=== PATIENT | male | born 1950 | race Caucasian/White ===

== ENCOUNTER 2017-05-26 20:06 | Inpatient (IN) | payer OTHER, MEDICARE ==
[~2017-05-26] VITALS: Ht 175.3 cm; Wt 68.5 kg
[2017-05-26 20:40] LABS: BASOPHILS % (AUTO) 0 % (0-10); BILIRUBIN,URINE NEGATIVE (NEGATIVE); CLARITY,URINE CLEAR; COLOR,URINE YELLOW; EOSINOPHILS % (AUTO) 0 % (0-10); GLUCOSE, URINE (UA) NEGATIVE (NEGATIVE); HEMATOCRIT 37 % (40-54); HEMOGLOBIN 13.1 G/DL (13.3-17.7); KETONES,URINE 1+ (NEGATIVE); LEUKOCYTE ESTERASE ,URINE 3+ (NEGATIVE); LYMPHOCYTES # (AUTO) 0.2 X 10^3 (1.0-4.0); LYMPHOCYTES % (AUTO) 2 % (12-44); MEAN CORPUSCULAR HEMOGLOBIN 31 PG (25-34); MEAN CORPUSCULAR HGB CONC 35 G/DL (32-36); MEAN CORPUSCULAR VOLUME 87 FL (80-99); MEAN PLATELET VOLUME 8.7 FL (7.4-10.4); MONOCYTES # (AUTO) 0.3 X 10^3 (0.0-1.0); MONOCYTES % (AUTO) 3 % (0-12); NEUTROPHILS % (AUTO) 96 % (42-75); NITRITE,URINE NEGATIVE (NEGATIVE); PH,URINE 6 (5-9); PLATELET COUNT 221 10^3/uL (130-400); PROTEIN,URINE 3+ (NEGATIVE); RED BLOOD COUNT 4.26 10^6/uL (4.35-5.85); RED CELL DISTRIBUTION WIDTH 12.8 % (10.0-14.5); UROBILINOGEN,URINE 4 MG/DL (NORMAL); WHITE BLOOD COUNT 11.5 10^3/uL (4.3-11.0)
--- NOTE | 2017-05-26 20:42 | ED General ---
General Stated Complaint: BLOOD INFECTION Source of Information: Patient Exam Limitations: No Limitations History of Present Illness Date Seen by Provider: May 26, 2017 Time Seen by Provider: 20:09 Initial Comments Here with report of blood infection. Seen at [facility] in [facility] yesterday. This is for fever. He had blood cultures drawn and Lomeli catheter placed at that time. Noted to have elevated white count and today he had blood cultures positive for gram-negative rods. He was given IV antibiotics yesterday and started on Levaquin by mouth daily today. He did take 1 dose of that. He apparently had a Rocephin injection at the hospital prior to leaving. Does have a history of needing to self catheter because of urinary retention. He has a Lomeli catheter in place now and that is draining yellow/cloudy urine. The hospital called him and wanted him evaluated at a hospital and All of his information from yesterday to here for further evaluation. Timing/Duration: 3-4 Days Severity: Moderate Associated Systoms: No Chest Pain, No Cough, No Diaphoresis, Fever/Chills, No Nausea/Vomiting, No Shortness of Air, No Weakness Allergies and Home Medications Allergies Coded Allergies: No Known Drug Allergies (Unverified , 02/06/13) Patient Home Medication List Home Medication List Reviewed: Yes Constitutional: see HPI, No chills, fever EENTM: no symptoms reported Respiratory: no symptoms reported Cardiovascular: no symptoms reported Gastrointestinal: no symptoms reported Genitourinary: see HPI, hematuria, other Musculoskeletal: no symptoms reported Skin: rash (resolved) Psychiatric/Neurological: No Symptoms Reported All Other Systems Reviewed Negative Unless Noted: Yes Past Xhypoqb-Hejevr-Fhanif Hx Patient Social History Alcohol Use: Occasionally Uses Recreational Drug Use: No Smoking Status: Never a Smoker Recent Foreign Travel: No Contact w/Someone Who Travel: No Immunizations Up To Date Date of Influenza Vaccine: Dec 27, 2012 Surgeries History of Surgeries: Yes Surgeries: Tonsillectomy Respiratory History of Respiratory Disorde: No Cardiovascular History of Cardiac Disorders: No Neurological History of Neurological Disord: No Genitourinary History of Genitourinary Disor: Yes Genitourinary Disorders: Benign Prostatic Hyperpl Gastrointestinal History of Gastrointestinal Di: No Musculoskeletal History of Musculoskeletal Dis: No Reviewed Nursing Assessment Reviewed/Agree w Nursing PMH: Yes Family Medical History Significant Family History: No Pertinent Family Hx Physical Exam-Suspected Sepsis Physical Exam Vital Signs Vital Signs - First Documented 05/26/17 20:09 Temp 100.6 Pulse 117 Resp 20 B/P (MAP) 98/77 (84) Pulse Ox 96 O2 Delivery Room Air Capillary Refill : General Appearance: No Apparent Distress, WD/WN HEENT: PERRL/EOMI, Pharynx Normal Neck: Non Tender, Supple Respiratory: Lungs Clear, Normal Breath Sounds Cardiovascular: Regular Rate, Rhythm, No Murmur Gastrointestinal: Non Tender, Soft Back: Normal Inspection, No CVA Tenderness, No Vertebral Tenderness Extremity: Normal Range of Motion, Non Tender Neurologic/Psychiatric: Alert, Oriented x3 Skin: normal color, warm/dry Focused Exam Evaluation Lactate Level Laboratory Tests 05/26/17 20:30: Lactic Acid Level 1.23 Lactic Acid Level Laboratory Tests Test 05/26/17 20:30 Lactic Acid Level 1.23 MMOL/L (0.50-2.00) Progress/Results/Core Measures Suspected Sepsis SIRS Temperature: Pulse: Respiratory Rate: Laboratory Tests 05/26/17 20:30: White Blood Count 11.5H Blood Pressure / Mean: Laboratory Tests 05/26/17 20:30: Lactic Acid Level 1.23 Laboratory Tests 05/26/17 20:30: Creatinine 0.93, INR Comment 1.4, Platelet Count 221, Total Bilirubin 1.3H Results/Orders Lab Results Laboratory Tests Test 05/26/17 20:30 Range/Units White Blood Count 11.5 H 4.3-11.0 10^3/uL Red Blood Count 4.26 L 4.35-5.85 10^6/uL Hemoglobin 13.1 L 13.3-17.7 G/DL Hematocrit 37 L 40-54 % Mean Corpuscular Volume 87 80-99 FL Mean Corpuscular Hemoglobin 31 25-34 PG Mean Corpuscular Hemoglobin Concent 35 32-36 G/DL Red Cell Distribution Width 12.8 10.0-14.5 % Platelet Count 221 130-400 10^3/uL Mean Platelet Volume 8.7 7.4-10.4 FL Neutrophils (%) (Auto) 96 H 42-75 % Lymphocytes (%) (Auto) 2 L 12-44 % Monocytes (%) (Auto) 3 0-12 % Eosinophils (%) (Auto) 0 0-10 % Basophils (%) (Auto) 0 0-10 % Neutrophils # (Auto) 11.0 H 1.8-7.8 X 10^3 Lymphocytes # (Auto) 0.2 L 1.0-4.0 X 10^3 Monocytes # (Auto) 0.3 0.0-1.0 X 10^3 Eosinophils # (Auto) 0.0 0.0-0.3 10^3/uL Basophils # (Auto) 0.0 0.0-0.1 10^3/uL Neutrophils % (Manual) 83 % Lymphocytes % (Manual) 4 % Monocytes % (Manual) 1 % Eosinophils % (Manual) 0 % Basophils % (Manual) 0 % Band Neutrophils 12 % Blood Morphology Comment NORMAL Prothrombin Time 17.3 H 12.2-14.7 SEC INR Comment 1.4 0.8-1.4 Activated Partial Thromboplast Time 29 24-35 SEC Urine Color YELLOW Urine Clarity CLEAR Urine pH 6 5-9 Urine Specific Bennet 1.010 L 1.016-1.022 Urine Protein 3+ H NEGATIVE Urine Glucose (UA) NEGATIVE NEGATIVE Urine Ketones 1+ H NEGATIVE Urine Nitrite NEGATIVE NEGATIVE Urine Bilirubin NEGATIVE NEGATIVE Urine Urobilinogen 4 H NORMAL MG/DL Urine Leukocyte Esterase 3+ H NEGATIVE Urine RBC (Auto) 5+ H NEGATIVE Urine RBC 50-100 H /HPF Urine WBC 10-25 H /HPF Urine Crystals NONE /LPF Urine Bacteria FEW H /HPF Urine Casts NONE /LPF Urine Mucus NEGATIVE /LPF Urine Culture Indicated YES Sodium Level 131 L 135-145 MMOL/L Potassium Level 3.9 3.6-5.0 MMOL/L Chloride Level 100 98-107 MMOL/L Carbon Dioxide Level 23 21-32 MMOL/L Anion Gap 8 5-14 MMOL/L Blood Urea Nitrogen 22 H 7-18 MG/DL Creatinine 0.93 0.60-1.30 MG/DL Estimat Glomerular Filtration Rate > 60 BUN/Creatinine Ratio 24 Glucose Level 110 H 70-105 MG/DL Lactic Acid Level 1.23 0.50-2.00 MMOL/L Calcium Level 8.9 8.5-10.1 MG/DL Total Bilirubin 1.3 H 0.1-1.0 MG/DL Aspartate Amino Transf (AST/SGOT) 23 5-34 U/L Alanine Aminotransferase (ALT/SGPT) 23 0-55 U/L Alkaline Phosphatase 68 40-136 U/L Total Protein 6.0 L 6.4-8.2 GM/DL Albumin 3.9 3.2-4.5 GM/DL My Orders Orders - DEYANIRA SWENSON MD Cbc With Automated Diff (05/26/17 20:) Comprehensive Metabolic Panel (05/26/17 20:09) Lactic Acid Analyzer (05/26/17 20:09) Blood Culture (05/26/17 20:) Sputum Culture (05/26/17:) Ua Culture If Indicated (05/26/17:) Protime With Inr (05/26/17:) Partial Thromboplastin Time (05/26/17:) Chest 1 View, Ap/Pa Only (05/26/17:) O2 (05/26/17:) Saline Lock/Iv-Start (05/26/17 20:09) Vital Signs Adult Sepsis Patie Q1H (05/26/17 20:09) Remove Rings In Anticipation O (05/26/17 20:09) Manual Differential (05/26/17 20:30) Acetaminophen Tablet (Tylenol Tablet) (05/26/17 20:45) Ns Iv 1000 Ml (Sodium Chloride 0.9%) (05/26/17 20:45) Urine Culture (05/26/17 20:30) Ceftriaxone Injection (Rocephin Injectio (05/26/17 22:00) Verapamil Injection (Calan Injection) (05/26/17 22:00) Verapamil Injection (Calan Injection) (05/26/17 21:44) Saline Lock/Iv-Start (05/26/17 21:51) Ns Iv 1000 Ml (Sodium Chloride 0.9%) (05/26/17 21:51) Diltiazem Cd 24 Hr Capsule (Cardizem Cd (05/26/17 22:00) Apixaban Tablet (Eliquis Tablet) (05/26/17 22:00) Saline Lock/Iv-Start (05/26/17 22:04) Ns Iv 500 Ml (Sodium Chloride 0.9%) (05/26/17 22:04) Medications Given in ED Current Medications Medications Dose Ordered Sig/Thad Route Start Time Stop Time Status Last Admin Dose Admin Apixaban 5 mg ONCE ONCE PO 05/26/17 22:00 05/26/17 22:01 DC 05/26/17 22:09 5 MG Ceftriaxone Sodium 1000 mg/ Sodium Chloride 100 ml @ 200 mls/hr ONCE ONCE IV 05/26/17 22:00 05/26/17 22:29 DC 05/26/17 21:58 200 MLS/HR Diltiazem HCl 240 mg ONCE ONCE PO 05/26/17 22:00 05/26/17 22:01 DC 05/26/17 22:09 240 MG Sodium Chloride 500 ml @ 0 mls/hr Q0M ONCE IV 05/26/17 22:04 05/26/17 22:06 DC 05/26/17 22:09 500 MLS/HR Sodium Chloride 1,000 ml @ 0 mls/hr Q0M ONCE IV 05/26/17 20:45 05/26/17 20:47 DC 05/26/17 20:50 1,000 MLS/HR Sodium Chloride 1,000 ml @ 0 mls/hr Q0M ONCE IV 05/26/17 21:51 05/26/17 21:52 DC 05/26/17 21:55 1,000 MLS/HR Verapamil HCl 5 mg ONCE ONCE IV 05/26/17 22:00 05/26/17 22:01 DC 05/26/17 21:55 5 MG Vital Signs/I&O Vital Sign - Last 12Hours 05/26/17 05/26/17 20:09 22:34 Temp 100.6 Pulse 117 137 Resp 20 13 B/P (MAP) 98/77 (84) 107/71 Pulse Ox 96 97 O2 Delivery Room Air Capillary Refill : Progress Note : Progress Note Seen and evaluated. Sepsis order set initiated. Normal saline 1 L bolus and Tylenol 1 g by mouth ordered. Monitor patient. Normal saline 2134: Patient noted to go into atrial fibrillation with rapid ventricular response on monitor. EKG done and verifies this. Patient does not have a history of that. Verapamil 5 mg IV ordered and repeat normal saline 1 L bolus due to anticipated hypotension afterwards. Patient is in the low 100s to upper 90s systolic currently. 2204: I have discussed the case with Dr. Cabrera at 2156 and he accepts patient and consult. 2202: I discussed the case with Dr. Jones and she accepts patient for admission, inpatient status, ICU for sepsis in atrial fibrillation with rapid ventricular response. Patient did become hypotensive after verapamil which was expected. I do believe this is related to the verapamil and not necessarily the sepsis. I have ordered an additional 500 mL of normal saline which will complete the 30 mL/kg IV bolus requirement but again I believe the hypotension is related to medication side effect. We will initiate Cardizem CD 240 mg by mouth and eliquis 5 mg by mouth for the atrial fibrillation concerns. 2207: Heart rate is in proving to the 120s after verapamil and fluids and blood pressure has improved to 97/53. We will continue to monitor for heart rate concerns. Patient to be admitted to the ICU. 2239: Heart rate 120s to 130s with blood pressure 107/71 and O2 sat 97 percent on room air. I tested focused exam at this time. Atrial fibrillation with rapid ventricular response is still incompletely resolved at this time that he has taken the Cardizem CD and I think this provide benefit. We will continue with the monitoring. Patient will go to the ICU. He has had his eliquis. Findings and concerns discussed with patient and family who agree. Admit, inpatient status. ECG Initial ECG Impression Date: May 26, 2017 Initial ECG Impression Time: 21:35 Initial ECG Rate: 150 Initial ECG Rhythm: A Fib/Flutter Initial ECG Impression: Atrial Fibrillation w/RVR Comment Atrial fibrillation with rapid ventricular response. Left axis deviation. No evidence of ST elevation ND. No previous available for comparison. Interpreted by me. Diagnostic Imaging Diagonstic Imaging: Xray Plain Films/CT/US/NM/MRI: chest Comments VIA [facility]. [place], [place] NAME: ELTON BLACKWELL [facility] REC#: [id number] PT STATUS: REG ER : 1950 PHYSICIAN: DEYANIRA SWENSON MD ADMIT DATE: 05/26/17/ER Draft Date of Exam:05/26/17 CHEST 1 VIEW, AP/PA ONLY EXAM: CHEST 1 VIEW, AP/PA ONLY INDICATION: Fever. COMPARISON: None. FINDINGS: Normal heart size and pulmonary vascularity. No focal pulmonary opacity, pleural effusion or pneumothorax. No acute osseous findings. IMPRESSION: No acute cardiopulmonary findings. Dictated on workstation # [id number] Dict: 05/26/172139 Trans: 05/26/172141 [id number] Interpreted by: RICHARD CALLAWAY MD Electronically signed by: Departure Communication (Admissions) Time/Spoke to Admitting Phy: 22:05 Time/Spoke to Consulting Phy: 21:57 Impression Impression: Primary Impression: Atrial fibrillation with rapid ventricular response Additional Impressions: Sepsis Qualified Codes: A41.9 - Sepsis, unspecified organism Urinary tract infection Qualified Codes: N30.00 - Acute cystitis without hematuria Disposition: ADMITTED INPATIENT Condition: Stable Admissions Decision to Admit Reason: Admit from ER (General) Decision to Admit/Date: May 26, 2017 Time/Decision to Admit Time: 21:57 Departure-Patient Inst. Referrals: DOTTIE GUZMAN MD (PCP/Family) Primary Care Physician DEYANIRA SWENSON MD May 26, 2017 20:42
[2017-05-26] MEDS ORDERED: ACETAMINOPHEN 500 MG TAB (TYLENOL) PO STA (20:45)
[2017-05-26] MEDS ORDERED: NS IV 1000 ML 1,000 ML IV ONE ×2 (20:45→21:51)
[2017-05-26 20:47] LABS: BACTERIA,URINE FEW /HPF; RBC,URINE 50-100 /HPF
[2017-05-26 20:49] LABS: INR 1.4 (0.8-1.4); PROTHROMBIN TIME PATIENT 17.3 SEC (12.2-14.7)
[2017-05-26 21:00] LABS: ALANINE AMINOTRANSFERASE 23 U/L (0-55); ALBUMIN 3.9 GM/DL (3.2-4.5); ALKALINE PHOSPHATASE 68 U/L (40-136); BILIRUBIN,TOTAL 1.3 MG/DL (0.1-1.0); BUN/CREATININE RATIO 24; CALCIUM 8.9 MG/DL (8.5-10.1); CARBON DIOXIDE 23 MMOL/L (21-32); CHLORIDE 100 MMOL/L (98-107); CREATININE SERUM 0.93 MG/DL (0.60-1.30); GFR ESTIMATED > 60; GLUCOSE 110 MG/DL (70-105); POTASSIUM 3.9 MMOL/L (3.6-5.0); SODIUM 131 MMOL/L (135-145)
[2017-05-26 21:05] LABS: BAND NEUTROPHILS 12 %; BASOPHILS % (MANUAL) 0 %; EOSINOPHILS % (MANUAL) 0 %; LYMPHOCYTES % (MANUAL) 4 %; MONOCYTES % (MANUAL) 1 %; NEUTROPHILS % (MANUAL) 83 %; RBC MORPH NORMAL
[2017-05-26] MEDS ORDERED: CLIN150C17 (21:11)
[2017-05-26] MEDS ORDERED: LEVO500T80 (21:11)
[2017-05-26] MEDS ORDERED: MUPI22OI2 (21:11)
[2017-05-26] MEDS ORDERED: TAMS0.4C2 (21:11)
--- NOTE | 2017-05-26 21:42 | Diagnostic Imaging Report ---
EXAM: CHEST 1 VIEW, AP/PA ONLY INDICATION: Fever. COMPARISON: None. FINDINGS: Normal heart size and pulmonary vascularity. No focal pulmonary opacity, pleural effusion or pneumothorax. No acute osseous findings. IMPRESSION: No acute cardiopulmonary findings. Dictated by: Dictated on workstation # [id number]
[2017-05-26] MEDS ORDERED: VERAPAMIL 5 MG/2 ML (CALAN) VIAL IV ONE (21:44)
[2017-05-26] MEDS ORDERED: DILTIAZEM 240 MG (CARDIZEM CD) CAP PO ONE (22:00)
[2017-05-26] MEDS ORDERED: APIXABAN 5 MG (ELIQUIS) TABLET PO ONE (22:00)
[2017-05-26] MEDS ORDERED: VERAPAMIL 10 MG/4 ML (CALAN) VIAL IV ONE (22:00)
[2017-05-26] MEDS ORDERED: cefTRIAXone INJECTION 1,000 MG in NS (IVPB) 100 ML IV ONE (22:00)
[2017-05-26] MEDS ORDERED: NS IV 500 ML 500 ML IV ONE (22:04)
[2017-05-26 23:00] VITALS: BP 95/66
[2017-05-26 23:15] VITALS: BP 101/76
[2017-05-26] MEDS ORDERED: CATHETER FLUSH 10 ML SYR IV PRN (23:15)
[2017-05-26] MEDS: NS IV 1000 ML 1,000 ML IV SCH (23:25)
[2017-05-26 23:30] VITALS: BP 91/71
[2017-05-26 23:45] VITALS: BP 94/74
[2017-05-27] VITALS (25 sets, daily range): BP systolic 92–127; BP diastolic 57–97
[2017-05-27] MEDS ORDERED: RT-ALBUTEROL SULF 2.5 MG/3 ML PRE-MIX VIAL INH PRN (01:45)
[2017-05-27 03:19] LABS: BASOPHILS % (AUTO) 0 % (0-10); EOSINOPHILS % (AUTO) 0 % (0-10); HEMATOCRIT 32 % (40-54); LYMPHOCYTES # (AUTO) 0.8 X 10^3 (1.0-4.0); LYMPHOCYTES % (AUTO) 5 % (12-44); MEAN CORPUSCULAR HEMOGLOBIN 31 PG (25-34); MEAN CORPUSCULAR HGB CONC 35 G/DL (32-36); MEAN CORPUSCULAR VOLUME 89 FL (80-99); MEAN PLATELET VOLUME 8.8 FL (7.4-10.4); MONOCYTES # (AUTO) 1.1 X 10^3 (0.0-1.0); MONOCYTES % (AUTO) 7 % (0-12); NEUTROPHILS # (AUTO) 14.4 X 10^3 (1.8-7.8); NEUTROPHILS % (AUTO) 89 % (42-75); PLATELET COUNT 173 10^3/uL (130-400); RED BLOOD COUNT 3.59 10^6/uL (4.35-5.85); RED CELL DISTRIBUTION WIDTH 12.9 % (10.0-14.5); WHITE BLOOD COUNT 16.2 10^3/uL (4.3-11.0)
[2017-05-27 03:32] LABS: BAND NEUTROPHILS 2 %; BASOPHILS % (MANUAL) 0 %; EOSINOPHILS % (MANUAL) 0 %; LYMPHOCYTES % (MANUAL) 5 %; MONOCYTES % (MANUAL) 5 %; NEUTROPHILS % (MANUAL) 88 %; RBC MORPH NORMAL
[2017-05-27 03:37] LABS: BUN/CREATININE RATIO 19; CALCIUM 7.9 MG/DL (8.5-10.1); CARBON DIOXIDE 18 MMOL/L (21-32); CHLORIDE 110 MMOL/L (98-107); CREATININE SERUM 0.81 MG/DL (0.60-1.30); GFR ESTIMATED > 60; GLUCOSE 178 MG/DL (70-105); MAGNESIUM 1.8 MG/DL (1.8-2.4); PHOSPHORUS 1.6 MG/DL (2.3-4.7); POTASSIUM 3.7 MMOL/L (3.6-5.0); SODIUM 136 MMOL/L (135-145)
--- OUTSIDE RECORDS SUMMARY | 2017-05-27 05:07 | XMS REPORT | Continuity of Care Document ---
Author Author [facility] Organization [facility] Address Unknown Phone Unavailable Allergies There is no data. Medications There is no data. Problems There is no data. Procedures There is no data. Results There is no data. Encounters ACCT No. Visit Date/Time Discharge Status Pt. Type Provider Facility Loc./Unit Complaint [id number] 02/06/2013 11:51:00 02/06/2013 15:30:00 DIS Outpatient [id number] 02/05/2013 07:38:00 02/05/2013 23:59:59 CLS Outpatient
[2017-05-27] MEDS ORDERED: CLIN300C11 PO (05:09)
[2017-05-27] MEDS ORDERED: LEVO500T80 PO (05:09)
[2017-05-27] MEDS ORDERED: [UNRECOGNIZED DRUG - OTHER] PO (05:09)
[2017-05-27] MEDS ORDERED: [UNRECOGNIZED DRUG - OTHER] PO (05:09)
[2017-05-27] MEDS ORDERED: TAMS0.4C2 PO (05:09)
[2017-05-27] MEDS: POTASSIUM CL 10MEQ/50ML IVPB 50 ML IV SCH (06:00)
[2017-05-27] MEDS: KCL 20 MEQ TAB (K-DUR) PO SCH (06:00)
[2017-05-27] MEDS: MAGNESIUM 1 GM/100 ML IVPB 100 ML IV SCH (06:00)
--- OUTSIDE RECORDS SUMMARY | 2017-05-27 06:31 | XMS REPORT | Continuity of Care Document ---
Author Author [facility] Organization [facility] Address Unknown Phone Unavailable Allergies There is no data. Medications There is no data. Problems There is no data. Procedures There is no data. Results There is no data. Encounters ACCT No. Visit Date/Time Discharge Status Pt. Type Provider Facility Loc./Unit Complaint [id number] 02/06/2013 11:51:00 02/06/2013 15:30:00 DIS Outpatient [id number] 02/05/2013 07:38:00 02/05/2013 23:59:59 CLS Outpatient
[2017-05-27] MEDS: CATHETER FLUSH 10 ML SYR IV SCH ×3 (06:36→21:01)
[2017-05-27] MEDS: NS IV 1000 ML 1,000 ML IV SCH ×3 (07:10→20:25)
[2017-05-27] MEDS: DILTIAZEM 240 MG (CARDIZEM CD) CAP PO SCH (08:18)
[2017-05-27] MEDS: APIXABAN 5 MG (ELIQUIS) TABLET PO SCH ×2 (08:18→20:57)
--- NOTE | 2017-05-27 09:51 | Diagnostic Imaging Report ---
CLINICAL INDICATION: Followup, blood infection. EXAM: Portable chest upright view. COMPARISON: Portable chest x-ray upright view dated 05/26/2017. FINDINGS: Lungs are clear with no interval lung infiltrate. There is no pleural effusion or pneumothorax. Pulmonary vasculature and cardiac silhouette are within normal limits. Bones show no significant abnormality. IMPRESSION: Stable chest x-ray exam with no interval radiographic evidence of acute cardiopulmonary process. Dictated by: Dictated on workstation # [id number]
--- NOTE | 2017-05-27 10:53 | History & Physical-Hospitalist ---
History of Present Illness HPI/Chief Complaint This is a 67-year-old white male who originally started having trouble with decreased urinary output and hesitancy about a year ago. Dr. Solis put him on Flomax with improvement. Approximately 3 weeks ago he began having increased trouble with acute urinary retention. He works down in [facility] and saw a urologist nurse practitioner there. He had a Lomeli catheter placed and then that was taken out after week but had to be replaced because of continued urinary retention. He then left the catheter in for another week and took it out and had improvement in his urination but has continued to have to self catheter. Approximately 2 days prior to this presentation he began having shaking chills and rigors and presented to the emergency room in [place] with similar complaints. He was called yesterday with the results of blood cultures that grew out gram-negative rods and he was instructed to go to the emergency room here. He had already been placed on Levaquin but only had one dose. He was found to be febrile here with a tachycardia and atrial fibrillation with rapid ventricular response. the patient has been placed on Rocephin and this morning is feeling somewhat better. He continues to be in atrial fibrillation but ventricular response is about 70 or 80. The patient did receive a dose of verapamil in the emergency room with subsequent hypotension. It was felt to be secondary to the medication and not sepsis. Source: patient Exam Limitations: no limitations Date Seen 05/27/17 Time Seen by Provider: 09:15 Attending Physician Kaiden Jones MD PCP Matthew Solis MD Referring Physician Date of Admission May 26, 2017 at 22:10 Home Medications & Allergies Home Medications Reviewed patient Home Medication Reconciliation performed by pharmacy medication reconciliations sterile processing technician and/or nursing. Patients Allergies have been reviewed. Allergies Allergies Coded Allergies No Known Drug Allergies (Ycmagvfwbv68/12/13) Past Zxryzlf-Unoypb-Xntpem Hx Past Med/Social Hx: Reviewed Nursing Past Med/Soc Hx Patient Social History Marrital Status: Employed/Student: employed Alcohol Use: Occasionally Uses Number of Drinks Today: AA Alcohol Beverage of Choice: Beer Recreational Drug Use: No Smoking Status: Former Smoker Former Smoker, Quit: Oct 04, 1971 Type Used: Cigarettes Physical Abuse Screen: No Sexual Abuse: No Recent Foreign Travel: No Contact w/other who traveled: No Recent Hopitalizations: Yes Recent Infectious Disease Expo: No Immunizations Up To Date Pediatric: Yes Date of Pneumonia Vaccine: Dec 05, 2016 Date of Influenza Vaccine: Dec 04, 2016 Past Medical History Surgeries: Tonsillectomy Currently Using CPAP: No Currently Using BIPAP: No Cardiac: Palpitations (Occasionally in the past) Genitourinary: Benign Prostatic Hyperpl Gastrointestinal: Gastroesophageal Reflux HEENT: Cataract History of Blood Disorders: No Adverse Reaction to Blood Pimentel: No Family History Dysphasia 19 FATHER (GERD) Kidney disease 19 FATHER (KIDNEY & PROSTATE CA) Thyroid disease 19 MOTHER (OVERACTIVE) No Pertinent Family Hx Review of Systems Constitutional: see HPI, chills, fever EENTM: no symptoms reported Respiratory: no symptoms reported Cardiovascular: palpitations (Occasional) Gastrointestinal: no symptoms reported Genitourinary: decreased output, hesitancy Musculoskeletal: no symptoms reported Skin: no symptoms reported, rash (On his lower legs) Psychiatric/Neurological: No Symptoms Reported Physical Exam Physical Exam Vital Signs Vital Signs - First Documented 05/26/17 20:09 Temp 100.6 Pulse 117 Resp 20 B/P (MAP) 98/77 (84) Pulse Ox 96 O2 Delivery Room Air Capillary Refill : Less Than 3 Seconds General Appearance: No Apparent Distress Eyes: Bilateral Eye Normal Inspection HEENT: PERRL/EOMI, TMs Normal, Normal ENT Inspection, Pharynx Normal Neck: Full Range of Motion, Normal Inspection, Non Tender, Supple Respiratory: Chest Non Tender, Lungs Clear, Normal Breath Sounds, No Accessory Muscle Use, No Respiratory Distress Cardiovascular: No Edema, No Gallop, No JVD, No Murmur, Normal Peripheral Pulses, Irregularly Irregular Gastrointestinal: Normal Bowel Sounds, No Organomegaly, No Pulsatile Mass, Non Tender, Soft Rectal: Deferred Back: Normal Inspection, No CVA Tenderness, No Vertebral Tenderness Extremity: Normal Capillary Refill, Normal Inspection, Normal Range of Motion, Non Tender, No Calf Tenderness Neurologic/Psychiatric: Alert, Oriented x3, No Motor/Sensory Deficits, Normal Mood/Affect, mental health assistant II-XII Norm as Tested Skin: Normal Color, Warm/Dry Lymphatic: No Adenopathy Results Results/Procedures Labs Laboratory Tests 05/26/17 20:30 05/27/17 03:05 Patient resulted labs reviewed. Imaging: Reviewed Imaging Films (Chest x-ray is normal) Assessment/Plan Admission Diagnosis Sepsis Admission Status: Inpatient Order (span 2 midnights) Reason for Inpatient Admission: Patient has acute urinary retention with gram-negative alice positive blood cultures and new onset atrial fibrillation with rapid ventricular response with hypotension Assessment and Plan 1. Sepsis with gram-negative rods with fever tachycardia and elevated white count, lactic acid was negative 2. A. fib with RVR with improved rate control uncertain cause 3. Hypotension secondary to medication for the atrial fibrillation-resolved 4. Acute urinary retention secondary to BPH with history having to self catheter 5. Metabolic acidosis with a drop in a bicarbonate 6. Hyponatremia resolved Plan is for cardiology consult and urology consult. The patient's white count did increase overnight this will be followed but we'll continue the Rocephin for now. Critical Care Critically Ill Patient Critical Care Start Date: May 27, 2017 Critical Care Start Time: 09:00 Stop date: May 27, 2017 Stop Time: 10:00 Diagnosis/Problems Diagnosis/Problems (1) Sepsis Status: Acute Qualifiers: Sepsis type: sepsis due to unspecified organism Qualified Codes: A41.9 - Sepsis, unspecified organism (2) Urinary retention due to benign prostatic hyperplasia Status: Acute Assessment & Plan: Consult urology continue indwelling Lomeli catheter for now (3) Atrial fibrillation with rapid ventricular response Status: Acute Assessment & Plan: Cardiology consult medication with an anticoagulant obtain an echocardiogram (4) Hypotension, iatrogenic Status: Resolved (5) Urinary tract infection Status: Acute Qualifiers: Urinary tract infection type: acute cystitis Hematuria presence: without hematuria Qualified Codes: N30.00 - Acute cystitis without hematuria Clinical Quality Measures DVT/VTE Risk/Contraindication: Risk Factor Score Per Nursin RFS Level Per Nursing on Admit: 2=Moderate Contraindications-Pharm: Other *list below* Other: on KAIDEN Clark MD May 27, 2017 10:53 am
--- NOTE | 2017-05-27 13:39 | Consultation-Cardiology ---
HPI-Cardiology Cardiology Consultation: Date of Consultation 05/27/17 Time Seen by Provider: 12:30 Date of Admission Attending Physician Yolis Jones MD Admitting Physician Matthew Solis MD Consulting Physician MOHINDER CERON MD, MA, FACP, FACC, FSCAI, CCDS HPI: Chief Complaint: Reason for consultation: A Fib with RVR HPI: 67 yo man admitted through ER last night with fever, malaise and rigors. Had earlier had blood draws in [place], [place], and was called by them at home and told to proceed to this ER for positive blood cultures. Has had trouble with urinating for several weeks and has been self-catheterizing at home. Was found to have A Fib with RVR at presentation yesterday evening. iv Verapamil transiently dropped bp. Does not report cp or palp or syncope or shortness of breath or ankle swelling Review of Systems-Cardiology Review of Systems Constitutional: As described under HPI Eyes: No vision change Ears/Nose/Throat: No ear discharge, No nasal drainage, No recent hearing loss Respiratory: As described under HPI Cardiovascular: As described under HPI Gastrointestinal: No constipation, No diarrhea, nausea (intemittent) Genitourinary: As described under HPI Musculoskeletal: back pain (chronic) Skin: No rash, No ulcerations Psychiatric/Neurological: No seizure, No focal weakness, No syncope Hematologic: No bleeding abnormalities All Other Systems Reviewed Negative Unless Noted: Yes ONP-Qavble-Skkysu Hx Patient Social History Marrital Status: Employed/Student: employed Alcohol Use: Occasionally Uses Recreational Drug Use: No Smoking Status: Former Smoker Type Used: Cigarettes Recent Foreign Travel: No Recent Infectious Disease Expo: No Hospitalization with Isolation: Denies Physical Abuse Screen: No Sexual Abuse: No Immunizations Up To Date Date of Pneumonia Vaccine: Dec 05, 2016 Date of Influenza Vaccine: Dec 04, 2016 Past Medical History PMH As described under Assessment. Family Medical History Family History: Dysphasia 19 FATHER (GERD) Kidney disease 19 FATHER (KIDNEY & PROSTATE CA) Thyroid disease 19 MOTHER (OVERACTIVE) Allergies and Home Medications Allergies Coded Allergies: No Known Drug Allergies (Unverified , 02/06/13) Home Medications Levofloxacin 500 Mg Tablet, 500 MG PO DAILY, (Reported) FILLED 05/26/17 #7 FOR A 7 DAY THERAPY Tamsulosin HCl 0.4 Mg Cap.er.24h, 0.4 MG PO DAILY, (Reported) [primal factor] , 2 PO BID, (Reported) [primal xl] , 2 BID, (Reported) Patient Home Medication List Home Medication List Reviewed: Yes Physical Exam-Cardiology Physical Exam Vital Signs/I&O Vital Sign - Last 12Hours 05/27/17 05/27/17 05/27/17 05/27/17 02:00 03:00 04:00 04:00 Temp 98.6 Pulse 76 56 71 Resp 11 13 34 B/P (MAP) 118/75 (89) 96/58 (71) 92/57 (69) Pulse Ox 96 97 96 O2 Delivery Room Air Room Air Room Air 05/27/17 05/27/17 05/27/17 05/27/17 04:00 05:00 06:00 07:00 Pulse 64 63 98 Resp 21 15 B/P (MAP) 100/70 (80) 94/66 (75) Pulse Ox 97 95 97 O2 Delivery Room Air Room Air Room Air 05/27/17 05/27/17 05/27/17 05/27/17 07:00 08:00 08:00 09:00 Temp 98.4 Pulse 92 76 Resp 15 23 B/P (MAP) 112/72 (85) 110/68 (82) Pulse Ox 97 97 97 O2 Delivery Room Air Room Air Room Air 05/27/17 05/27/17 05/27/17 05/27/17 09:00 10:00 11:00 12:00 Pulse 91 83 69 Resp 16 17 18 B/P (MAP) 108/60 (76) 121/74 (90) 116/74 (88) Pulse Ox 96 97 96 97 O2 Delivery Room Air Room Air Room Air Room Air 05/27/17 05/27/17 12:00 12:00 Temp 99.0 Pulse 67 Resp 14 B/P (MAP) 113/71 (85) Pulse Ox 96 O2 Delivery Room Air Intake and Output 05/27/17 00:00 Intake Total 2600 ml Balance 2600 ml Capillary Refill : Less Than 3 Seconds Constitutional: AAO x 3, well-developed, well-nourished HEENT: PERRL, EOMI, hearing is well preserved, No xanthelasmas are seen Neck: carotid pulses are 2 + bilaterally, with good upstrokes Respiratory: No accessory muscle use, lungs clear to auscultation Cardiovascular: irregularly irregular, S1 and S2, systolic murmur (faint STANISLAW at card base) Gastrointestinal: No tender, soft, No guarding, No rebound, audible bowel sounds Extremities: No clubbing, No cyanosis, No significant edema Neurologic/Psychiatric: oriented x 3, grossly intact, power is 5/5 both on sides Skin: normal color, warm/dry, No rash on exposed areas, No ulcerations on exposed areas, other (good capillary refill) Data Review Labs Laboratory Tests 05/26/17 20:30: White Blood Count 11.5H, Red Blood Count 4.26L, Hemoglobin 13.1L, Hematocrit 37L , Mean Corpuscular Volume 87, Mean Corpuscular Hemoglobin 31, Mean Corpuscular Hemoglobin Concent 35, Red Cell Distribution Width 12.8, Platelet Count 221, Mean Platelet Volume 8.7, Neutrophils (%) (Auto) 96H, Lymphocytes (%) (Auto) 2L , Monocytes (%) (Auto) 3, Eosinophils (%) (Auto) 0, Basophils (%) (Auto) 0, Neutrophils # (Auto) 11.0H, Lymphocytes # (Auto) 0.2L, Monocytes # (Auto) 0.3, Eosinophils # (Auto) 0.0, Basophils # (Auto) 0.0, Neutrophils % (Manual) 83, Lymphocytes % (Manual) 4, Monocytes % (Manual) 1, Eosinophils % (Manual) 0, Basophils % (Manual) 0, Band Neutrophils 12, Blood Morphology Comment NORMAL, Prothrombin Time 17.3H, INR Comment 1.4, Activated Partial Thromboplast Time 29 , Urine Color YELLOW, Urine Clarity CLEAR, Urine pH 6, Urine Specific [place] 1.010L, Urine Protein 3+H, Urine Glucose (UA) NEGATIVE, Urine Ketones 1+H, Urine Nitrite NEGATIVE, Urine Bilirubin NEGATIVE, Urine Urobilinogen 4H, Urine Leukocyte Esterase 3+H, Urine RBC (Auto) 5+H, Urine RBC 50-100H, Urine WBC 10- 25H, Urine Crystals NONE, Urine Bacteria FEWH, Urine Casts NONE, Urine Mucus NEGATIVE, Urine Culture Indicated YES, Sodium Level 131L, Potassium Level 3.9, Chloride Level 100, Carbon Dioxide Level 23, Anion Gap 8, Blood Urea Nitrogen 22H, Creatinine 0.93, Estimat Glomerular Filtration Rate > 60, BUN/Creatinine Ratio 24, Glucose Level 110H, Lactic Acid Level 1.23, Calcium Level 8.9, Total Bilirubin 1.3H, Aspartate Amino Transf (AST/SGOT) 23, Alanine Aminotransferase ( ALT/SGPT) 23, Alkaline Phosphatase 68, Total Protein 6.0L, Albumin 3.9 05/27/17 03:05: White Blood Count 16.2H, Red Blood Count 3.59L, Hemoglobin 11.0L, Hematocrit 32L , Mean Corpuscular Volume 89, Mean Corpuscular Hemoglobin 31, Mean Corpuscular Hemoglobin Concent 35, Red Cell Distribution Width 12.9, Platelet Count 173, Mean Platelet Volume 8.8, Neutrophils (%) (Auto) 89H, Lymphocytes (%) (Auto) 5L , Monocytes (%) (Auto) 7, Eosinophils (%) (Auto) 0, Basophils (%) (Auto) 0, Neutrophils # (Auto) 14.4H, Lymphocytes # (Auto) 0.8L, Monocytes # (Auto) 1.1H, Eosinophils # (Auto) 0.0, Basophils # (Auto) 0.0, Neutrophils % (Manual) 88, Lymphocytes % (Manual) 5, Monocytes % (Manual) 5, Eosinophils % (Manual) 0, Basophils % (Manual) 0, Band Neutrophils 2, Blood Morphology Comment NORMAL, Sodium Level 136, Potassium Level 3.7, Chloride Level 110#H, Carbon Dioxide Level 18L, Anion Gap 8, Blood Urea Nitrogen 15, Creatinine 0.81, Estimat Glomerular Filtration Rate > 60, BUN/Creatinine Ratio 19, Glucose Level 178H, Calcium Level 7.9L, Phosphorus Level 1.6L, Magnesium Level 1.8 Laboratory Tests 05/26/17 20:30 05/27/17 03:05 A/P-Cardiology Assessment/Admission Diagnosis Gram-negative septicemia due to obstructive uropathy (probably BPH). This is being managed by the Derrell cole with RVR, first documented on 05/26/17 Probable sleep apnea (as reported by his at the time of this interview) Discussion and Recomendations * I had a long discussion with him and his * We recommend long-acting dilt for vent rate control and apixaban for stroke prophylaxis * We reviewed and discussed the rationale, pros and cons of the above recommendations * We recommend echo to eval for cardiomyopathy * We recommend sleep studies to eval for sleep apnea * Evaluate for hyperthyroidism * Monitor labs * Keep on tele Clinical Quality Measures DVT/VTE Risk/Contraindication: Risk Factor Score Per Nursin RFS Level Per Nursing on Admit: 2=Moderate Contraindications-Pharm: Other *list below* Other: on MOHINDER Blake MD FACP FAC CCDS May 27, 2017 13:39
--- NOTE | 2017-05-27 15:45 | CONSULTATION REPORT ---
DATE OF SERVICE: 05/27/2017 ATTENDING PHYSICIAN: Yolis Jones MD. SUMMARY: After reviewing the patient's records, interviewing him and examining him, this is a 67-year-old white man who has been having problem with prostatism and enlarged prostate for many years. He saw back in 2010, had what sounded like a microwave that worked for a little while and Dr. Solis put him on some Flomax with some improvement. Three or four weeks ago, he had more problems with retention. He was working at that time in [facility], he saw urologist practitioner there. A Lomeli catheter was inserted. He had a trial of voiding, which he failed, so he was taught self catheterization 4 times a day, getting approximately 300 to 400 mL each time and poor emptying on his own. He was told by Dr. Solis also to have an enlarge prostate. His last rectal exam by him was in November was benign according to the patient. He could not remember if he had a PSA at that time. He was admitted to the emergency room with sepsis. His blood culture positive for E. coli. He was started on Rocephin with improvement. His white count on admission was 16,000, today is 11,000. His creatinine is normal. He was also found to have atrial fibrillation with slow ventricular response and got some treatment for that. SOCIAL HISTORY: The patient is , drinks beer. No recreational drugs. Quit smoking in . PAST SURGERY: Tonsillectomy. ALLERGIES: He has no known drug allergies. MEDICAL ILLNESSES: BPH, gastroesophageal reflux disease, cataract and atherosclerotic heart disease. FAMILY HISTORY: GERD. His father had kidney and prostate cancer and mother had overactive bladder. REVIEW OF SYSTEMS: As above-mentioned. PHYSICAL EXAMINATION: VITAL SIGNS: Per chart. GENERAL: Well-nourished, well developed in no acute distress. HEENT: Head is normocephalic. ENT unremarkable. NECK: Supple. No bruits. CHEST: Clear, nontender. HEART: Irregularly irregular heart. No murmur. ABDOMEN: Soft, nontender. Phallus circumcised, adequate meatus with Lomeli catheter in place. Testes down the scrotum. RECTAL: Deferred. NEUROLOGIC: Grossly intact. Oriented x3. EXTREMITIES: Lower extremity, no edema or cyanosis. IMPRESSION: 1. Urosepsis. 2. Urinary retention with benign prostatic hyperplasia and enlarged prostate. 3. Atrial fibrillation with rapid ventricular response, improved. 4. Family history of cancer of the prostate. PLAN: We will continue present management, later on as an outpatient after sending him home with the catheter we will work him up with a cystoscopy and ultrasound of the prostate. We will examine his prostate at that time and order a PSA. The plan was fully explained to the patient, all his questions were answered. Job ID: [id number] DocumentID: [id number] Dictated Date: 05/27/2017 11:29:10 Deputy Jailer Date: 05/27/2017 15:44:32 Dictated By: ESTEFANIA HOUGH MD MTDD
[2017-05-27] MEDS: TAMSULOSIN 0.4 MG (FLOMAX) CAP PO SCH (16:53)
[2017-05-27] MEDS ORDERED: ACETAMINOPHEN 325 MG TABLET/CAPLET (TYLENOL) ONE (18:25)
[2017-05-27] MEDS ORDERED: ACETAMINOPHEN 325 MG TABLET/CAPLET (TYLENOL) PO PRN (20:30)
[2017-05-27] MEDS: cefTRIAXone 1 GM/NS 100 ML IVPB IV SCH ×2 (20:57)
[2017-05-28] VITALS (13 sets, daily range): BP systolic 101–140; BP diastolic 55–86
[2017-05-28] MEDS ORDERED: ONDANSETRON 4 MG/2 ML (SDV) Z0FRAN ONE (03:18)
[2017-05-28] MEDS ORDERED: ONDANSETRON 4 MG/2 ML (SDV) Z0FRAN IVP PRN (03:30)
[2017-05-28 04:03] LABS: BASOPHILS % (AUTO) 0 % (0-10); EOSINOPHILS % (AUTO) 0 % (0-10); HEMATOCRIT 35 % (40-54); HEMOGLOBIN 12.1 G/DL (13.3-17.7); LYMPHOCYTES # (AUTO) 0.5 X 10^3 (1.0-4.0); LYMPHOCYTES % (AUTO) 6 % (12-44); MEAN CORPUSCULAR HEMOGLOBIN 30 PG (25-34); MEAN CORPUSCULAR HGB CONC 35 G/DL (32-36); MEAN CORPUSCULAR VOLUME 87 FL (80-99); MONOCYTES # (AUTO) 0.7 X 10^3 (0.0-1.0); MONOCYTES % (AUTO) 8 % (0-12); NEUTROPHILS # (AUTO) 8.4 X 10^3 (1.8-7.8); NEUTROPHILS % (AUTO) 86 % (42-75); PLATELET COUNT 194 10^3/uL (130-400); RED BLOOD COUNT 4.02 10^6/uL (4.35-5.85); RED CELL DISTRIBUTION WIDTH 13.1 % (10.0-14.5); WHITE BLOOD COUNT 9.7 10^3/uL (4.3-11.0)
[2017-05-28 04:27] LABS: BUN/CREATININE RATIO 21; CALCIUM 7.8 MG/DL (8.5-10.1); CARBON DIOXIDE 20 MMOL/L (21-32); CHLORIDE 109 MMOL/L (98-107); CREATININE SERUM 0.71 MG/DL (0.60-1.30); GFR ESTIMATED > 60; GLUCOSE 107 MG/DL (70-105); MAGNESIUM 1.8 MG/DL (1.8-2.4); PHOSPHORUS 1.6 MG/DL (2.3-4.7); POTASSIUM 3.6 MMOL/L (3.6-5.0); SODIUM 135 MMOL/L (135-145)
[2017-05-28] MEDS: NS IV 1000 ML 1,000 ML IV SCH (04:40)
[2017-05-28] MEDS: MAGNESIUM 1 GM/100 ML IVPB 100 ML IV SCH (04:49)
[2017-05-28] MEDS: POTASSIUM CL 10MEQ/50ML IVPB 50 ML IV SCH (04:49)
[2017-05-28] MEDS: KCL 20 MEQ TAB (K-DUR) PO SCH ×3 (04:49→06:42)
[2017-05-28] MEDS: CATHETER FLUSH 10 ML SYR IV SCH ×3 (06:14→20:37)
--- NOTE | 2017-05-28 06:52 | Pulmonary Consultation ---
History of Present Illness History of Present Illness Date of Consultation 05/28/17 06:46 Time Seen by Provider: 06:46 Date of Admission History of Present Illness This is a 67-year-old white male who originally started having trouble with decreased urinary output and hesitancy about a year ago. Dr. Solis put him on Flomax with improvement. Approximately 3 weeks ago he began having increased trouble with acute urinary retention. He works down in [facility] and saw a urologist nurse practitioner there. He had a Lomeli catheter placed and then that was taken out after week but had to be replaced because of continued urinary retention. He then left the catheter in for another week and took it out and had improvement in his urination but has continued to have to self catheter. Approximately 2 days prior to this presentation he began having shaking chills and rigors and presented to the emergency room in [place] with similar complaints. He was called yesterday with the results of blood cultures that grew out gram-negative rods and he was instructed to go to the emergency room here. He had already been placed on Levaquin but only had one dose. He was found to be febrile here with a tachycardia and atrial fibrillation with rapid ventricular response. the patient has been placed on Rocephin and this morning is feeling somewhat better. He continues to be in atrial fibrillation but ventricular response is about 70 or 80. The patient did receive a dose of verapamil in the emergency room with subsequent hypotension. It was felt to be secondary to the medication and not sepsis. Source: patient Allergies and Home Medications Allergies Coded Allergies: No Known Drug Allergies (Unverified , 02/06/13) Home Medications Apixaban 5 Mg Tablet, 5 MG PO BID Prescribed by: HERNAN GATES on 05/29/17 1057 Cefdinir 300 Mg Capsule, 300 MG PO BID Prescribed by: HERNAN GATES on 05/29/17 1057 Diltiazem HCl 240 Mg Cap.er.24h, 240 MG PO DAILY@0900 Prescribed by: HERNAN GATES on 05/29/17 1057 Tamsulosin HCl 0.4 Mg Cap.er.24h, 0.4 MG PO DAILY, (Reported) [primal factor] , 2 TAB PO BID, (Reported) [primal xl] , 2 TAB PO BID, (Reported) Past Mfqjfcf-Cehiar-Cwooiv Hx Patient Social History Alcohol Use: Occasionally Uses Number of Drinks Today: AA Alcohol Beverage of Choice: Beer Recreational Drug Use: No Smoking Status: Former Smoker Type Used: Cigarettes Former Smoker, Quit: Oct 04, 1971 Recent Foreign Travel: No Contact w/Someone Who Travel: No Recent Infectious Disease Expo: No Recent Hopitalizations: Yes Immunizations Up To Date PED Vaccines UTD: Yes Date of Pneumonia Vaccine: Dec 05, 2016 Date of Influenza Vaccine: Dec 04, 2016 Surgeries History of Surgeries: Yes (COLONOCOPY, CATARACT) Surgeries: Tonsillectomy Respiratory History of Respiratory Disorde: No Currently Using CPAP: No Currently Using BIPAP: No Cardiovascular History of Cardiac Disorders: No Cardiac Disorders: Palpitations (Occasionally in the past) Neurological History of Neurological Disord: No Genitourinary History of Genitourinary Disor: Yes Genitourinary Disorders: Benign Prostatic Hyperpl Gastrointestinal History of Gastrointestinal Di: No Gastrointestinal Disorders: Gastroesophageal Reflux Musculoskeletal History of Musculoskeletal Dis: No Endocrine History of Endocrine Disorders: No HEENT History of HEENT Disorders: Yes HEENT Disorders: Cataract Cancer History of Cancer: No Psychosocial History of Psychiatric Problem: No Integumentary History of Skin or Integumenta: No Blood Transfusions History of Blood Disorders: No Adverse Reaction to a Blood Tr: No Reviewed Nursing Assessment Reviewed/Agree w Nursing PMH: Yes Family Medical History Significant Family History: No Pertinent Family Hx Family Medial History: Dysphasia 19 FATHER (GERD) Kidney disease 19 FATHER (KIDNEY & PROSTATE CA) Thyroid disease 19 MOTHER (OVERACTIVE) Review of Systems Time Seen by Provider: 10:29 Exam Exam Vital Signs Date Time Temp Pulse Resp B/P (MAP) Pulse Ox O2 Delivery O2 Flow Rate FiO2 05/28/17 06:29 93 Room Air 05/28/17 06:00 65 19 124/72 (89) 92 Room Air 05/28/17 05:00 72 10 121/75 (90) 93 Room Air 05/28/17 04:00 63 18 113/71 (85) 92 Room Air 05/28/17 03:25 99.0 05/28/17 03:25 94 Room Air 05/28/17 03:00 62 21 109/70 (83) 93 Room Air 05/28/17 02:00 63 11 111/64 (80) 92 Room Air 05/28/17 01:00 70 05/28/17 01:00 70 101/55 (70) 94 Room Air 05/28/17 00:00 99.4 60 105/72 (83) 94 Room Air 05/27/17 23:20 93 Room Air 05/27/17 23:00 64 107/68 (81) 93 Room Air 05/27/17 22:45 92 Room Air 05/27/17 22:00 68 98/62 (74) 95 Room Air 05/27/17 21:00 72 111/65 (80) 96 Room Air 05/27/17 20:00 97 Room Air 05/27/17 20:00 99.1 05/27/17 20:00 74 99/64 (76) 97 Room Air 05/27/17 19:00 76 05/27/17 19:00 76 20 120/70 (87) 96 Room Air 05/27/17 18:32 100.2 05/27/17 18:00 71 16 109/97 (101) 95 Room Air 05/27/17 17:00 62 20 102/64 (77) 97 Room Air 05/27/17 16:00 68 20 112/63 (79) 97 Room Air 05/27/17 16:00 97 Room Air 05/27/17 15:00 66 18 127/74 (91) 96 Room Air 05/27/17 14:00 62 20 97/61 (73) 98 Room Air 05/27/17 13:00 63 18 99/77 (84) 97 Room Air 05/27/17 13:00 63 05/27/17 12:00 67 14 113/71 (85) 96 Room Air 05/27/17 12:00 99.0 05/27/17 12:00 97 Room Air 05/27/17 11:00 69 18 116/74 (88) 96 Room Air 05/27/17 10:00 83 17 121/74 (90) 97 Room Air 05/27/17 09:00 91 16 108/60 (76) 96 Room Air 05/27/17 09:00 98.4 05/27/17 08:00 97 Room Air 05/27/17 08:00 76 23 110/68 (82) 97 Room Air 05/27/17 07:00 92 15 112/72 (85) 97 Room Air 05/27/17 07:00 98 I & O 05/28/17 07:00 Intake Total 5240 ml Output Total 1995 ml Balance 3245 ml General Appearance: No Apparent Distress HEENT: PERRL/EOMI, TMs Normal, Normal ENT Inspection, Pharynx Normal Neck: Full Range of Motion, Normal Inspection, Non Tender, Supple Respiratory: Chest Non Tender, Lungs Clear, Normal Breath Sounds, No Accessory Muscle Use, No Respiratory Distress Cardiovascular: No Edema, No Gallop, No JVD, No Murmur, Normal Peripheral Pulses, Irregularly Irregular Capillary Refill: Less Than 3 Seconds Extremity: Normal Capillary Refill, Normal Inspection, Normal Range of Motion, Non Tender, No Calf Tenderness Neurologic/Psychiatric: Alert, Oriented x3, No Motor/Sensory Deficits, Normal Mood/Affect, wildlife forensic geneticist II-XII Norm as Tested Skin: Normal Color, Warm/Dry Lymphatic: No Adenopathy Results Lab Laboratory Tests 05/26/17 20:30 05/27/17 03:05 05/28/17 03:35 Assessment/Plan Assessment/Plan Acute Sepsis with UTI -Rocephin continue -IVF -Cultures pending Nausea UTI with hx of BPH Afib RVR Hypotension -- resolved -IVF 255 Critical Care: Critically Ill Patient ZACHARIAH MALIK DO May 28, 2017 06:52
[2017-05-28] MEDS ORDERED: SODIUM PHOSPHATE INJ 30 MM in NS (IVPB) 250 ML IV NR (07:08)
--- NOTE | 2017-05-28 07:48 | Progress Note-Hospitalist ---
Subjective HPI/CC On Admission Date Seen by Provider: May 28, 2017 Time Seen by Provider: 07:35 This is a 67-year-old white male who originally started having trouble with decreased urinary output and hesitancy about a year ago. Dr. Solis put him on Flomax with improvement. Approximately 3 weeks ago he began having increased trouble with acute urinary retention. He works down in [employer] [facility] and saw a urologist nurse practitioner there. He had a Lomeli catheter placed and then that was taken out after week but had to be replaced because of continued urinary retention. He then left the catheter in for another week and took it out and had improvement in his urination but has continued to have to self catheter. Approximately 2 days prior to this presentation he began having shaking chills and rigors and presented to the emergency room in [place] with similar complaints. He was called yesterday with the results of blood cultures that grew out gram-negative rods and he was instructed to go to the emergency room here. He had already been placed on Levaquin but only had one dose. He was found to be febrile here with a tachycardia and atrial fibrillation with rapid ventricular response. the patient has been placed on Rocephin and this morning is feeling somewhat better. He continues to be in atrial fibrillation but ventricular response is about 70 or 80. The patient did receive a dose of verapamil in the emergency room with subsequent hypotension. It was felt to be secondary to the medication and not sepsis. Subjective/Events-last exam Pt reports still feeling poorly. He complains of being achy but otherwise did not have specifics complaints. He was able to tolerate his potassium this morning but got very nauseated with it. He also is requesting Tums or pickle juice for his GERD as those are what he takes at home and helps his symptoms. Focused Exam Evaluation Lactate Level Laboratory Tests 05/26/17 20:30: Lactic Acid Level 1.23 Objective Exam Vital Signs Vital Signs Date Time Temp Pulse Resp B/P (MAP) Pulse Ox O2 Delivery O2 Flow Rate FiO2 05/26/17 20:09 100.6 117 20 98/77 (84) 96 Room Air Capillary Refill : Less Than 3 Seconds General Appearance: No Apparent Distress, WD/WN Respiratory: Lungs Clear, No Accessory Muscle Use, No Respiratory Distress Cardiovascular: Regular Rate, Rhythm, No Murmur Gastrointestinal: Normal Bowel Sounds, Non Tender, Soft Extremity: Non Tender, No Calf Tenderness, No Pedal Edema Neurologic/Psychiatric: Alert, Oriented x3, No Motor/Sensory Deficits Results/Procedures Lab Laboratory Tests 05/28/17 03:35 Patient resulted labs reviewed. Imaging: Reviewed Imaging Films (Chest x-ray is normal) Assessment/Plan Assessment and Plan Assess & Plan/Chief Complaint a-fib with RVR and gram negative alice bacteremia Critical Care Critical Care: Critically Ill Patient Diagnosis/Problems Diagnosis/Problems (1) Bacteremia Status: Acute Assessment & Plan: per notes - GNR growing from outside hospital Will request records Cultures negative here Had received Levaquin as an outpatient Continue on Rocephin until sensitivities available Met sepsis criteria on arrival but since resolved no severe sepsis criteria met Leukocytosis resolved, afebrile (2) Atrial fibrillation Status: Acute Assessment & Plan: A-fib with RVR on presentation Cardiology consulted, appreciate recs Continue diltiazem Apixaban for anticoagulation TSH normal Echo pending Qualifiers: Atrial fibrillation type: paroxysmal Qualified Codes: I48.0 - Paroxysmal atrial fibrillation (3) UTI (urinary tract infection) Status: Acute Assessment & Plan: UA consistent with UTI Likely source of infection Had been self cathing recently Qualifiers: Urinary tract infection type: catheter-associated UTI Indwelling urinary catheter type: unspecified Encounter type: initial encounter Qualified Codes : T83.511A - Infection and inflammatory reaction due to indwelling urethral catheter, initial encounter; N39.0 - Urinary tract infection, site not specified (4) Urinary retention due to benign prostatic hyperplasia Status: Acute Assessment & Plan: Urology consulted, started on flomax (5) GERD (gastroesophageal reflux disease) Status: Chronic Assessment & Plan: Will resume Tums Qualifiers: Esophagitis presence: esophagitis presence not specified Qualified Codes: K21.9 - Gastro-esophageal reflux disease without esophagitis (6) Prophylactic measure Assessment & Plan: Apixaban for anticoagulation Reg diet Saline lock Clinical Quality Measures DVT/VTE Risk/Contraindication: Risk Factor Score Per Nursin RFS Level Per Nursing on Admit: 2=Moderate Contraindications-Pharm: Other *list below* Other: on HERNAN Sandoval MD May 28, 2017 7:48 am
[2017-05-28] MEDS ORDERED: CALCIUM CARBONATE 500 MG (TUMS) TAB.CHEW PO PRN (08:00)
[2017-05-28] MEDS: APIXABAN 5 MG (ELIQUIS) TABLET PO SCH ×2 (08:43→20:36)
[2017-05-28] MEDS: DILTIAZEM 240 MG (CARDIZEM CD) CAP PO SCH (08:43)
--- NOTE | 2017-05-28 09:31 | Progress Note-Cardiology ---
Cardiology SOAP Progress Note Subjective: No cp or palp or syncope or shortness of breath Objective: I&O/Vital Signs Vital Sign - Last 12Hours 05/27/17 05/27/17 05/27/17 05/27/17 22:00 22:45 23:00 23:20 Pulse 68 64 B/P (MAP) 98/62 (74) 107/68 (81) Pulse Ox 95 92 93 93 O2 Delivery Room Air Room Air Room Air Room Air 05/28/17 05/28/17 05/28/17 05/28/17 00:00 01:00 01:00 02:00 Temp 99.4 Pulse 60 70 70 63 Resp 11 B/P (MAP) 105/72 (83) 101/55 (70) 111/64 (80) Pulse Ox 94 94 92 O2 Delivery Room Air Room Air Room Air 05/28/17 05/28/17 05/28/17 05/28/17 03:00 03:25 03:25 04:00 Temp 99.0 Pulse 62 63 Resp 21 18 B/P (MAP) 109/70 (83) 113/71 (85) Pulse Ox 93 94 92 O2 Delivery Room Air Room Air Room Air 05/28/17 05/28/17 05/28/17 05/28/17 05:00 06:00 06:29 07:01 Pulse 72 65 76 Resp 10 19 B/P (MAP) 121/75 (90) 124/72 (89) Pulse Ox 93 92 93 O2 Delivery Room Air Room Air Room Air 05/28/17 05/28/17 08:41 08:45 Temp 99.6 Pulse 80 Resp 16 B/P (MAP) 126/79 (95) Pulse Ox 95 O2 Delivery Room Air Room Air Intake and Output 05/28/17 00:00 Intake Total 2420 ml Output Total 700 ml Balance 1720 ml Weight (Pounds): 151 Weight (Ounces): 0.0 Weight (Calculated Kilograms): 68.059243 Constitutional: AAO x 3, well-developed, well-nourished Respiratory: No accessory muscle use, lungs clear to auscultation Cardiovascular: irregularly irregular, S1 and S2, systolic murmur (faint STANISLAW at card base) Gastrointestional: No tender, soft, No guarding, No rebound, audible bowel sounds Extremities: No clubbing, No cyanosis, No significant edema Neurologic/Psychiatric: oriented x 3, grossly intact, power is 5/5 both on sides Skin: normal color, warm/dry, No rash on exposed areas, No ulcerations on exposed areas, other (good capillary refill) Results/Procedures: Labs Laboratory Tests 05/28/17 03:35: White Blood Count 9.7, Red Blood Count 4.02L, Hemoglobin 12.1L, Hematocrit 35L, Mean Corpuscular Volume 87, Mean Corpuscular Hemoglobin 30, Mean Corpuscular Hemoglobin Concent 35, Red Cell Distribution Width 13.1, Platelet Count 194, Mean Platelet Volume 9.0, Neutrophils (%) (Auto) 86H, Lymphocytes (%) (Auto) 6L , Monocytes (%) (Auto) 8, Eosinophils (%) (Auto) 0, Basophils (%) (Auto) 0, Neutrophils # (Auto) 8.4H, Lymphocytes # (Auto) 0.5L, Monocytes # (Auto) 0.7, Eosinophils # (Auto) 0.0, Basophils # (Auto) 0.0, Sodium Level 135, Potassium Level 3.6, Chloride Level 109H, Carbon Dioxide Level 20L, Anion Gap 6, Blood Urea Nitrogen 15, Creatinine 0.71, Estimat Glomerular Filtration Rate > 60, BUN/ Creatinine Ratio 21, Glucose Level 107H, Calcium Level 7.8L, Phosphorus Level 1.6L, Magnesium Level 1.8, Thyroid Stimulating Hormone (TSH) 2.33 Microbiology 05/26/17 Blood Culture - Preliminary, Resulted No growth 05/26/17 Urine Culture - Preliminary, Resulted NO GROWTH Laboratory Tests 05/26/17 20:30 05/27/17 03:05 05/28/17 03:35 A/P: Assessment: Gram-negative septicemia due to obstructive uropathy (probably BPH). This is being managed by the Derrell cole with RVR, first documented on 05/26/17. Currently NSR TSH normal on 05/28/17 (2.33) Probable sleep apnea (as reported by his at the time of this interview) H/o BPH for which he has previously had surgery (Dr Suresh) Plan: * We recommend echo to eval for cardiomyopathy * Continue therapy for rate control and stroke prophylaxis * We recommend sleep studies to eval for sleep apnea * Monitor labs MOHINDER CERON MD FACP [facility] May 28, 2017 09:31
--- NOTE | 2017-05-28 09:42 | Progress Note-Urology ---
Progress Note-Urology Progress Notes/Assess & Plan Progress/Assessment & Plan IMPROVING. PLAN OK TO DISCHARGE ANY TIME [place], KEEP ON ABX PO AND SEE ME TUESDAY 05/30 AT 3PM FOR CYSTO AND TRUSP Final Diagnosis URINE RETENTION AND SEPSIS ESTEFANIA HOUGH MD May 28, 2017 9:42 am
[2017-05-28] MEDS: TAMSULOSIN 0.4 MG (FLOMAX) CAP PO SCH (17:36)
[2017-05-28] MEDS ORDERED: RT-ALBUTEROL/IPRATROPIUM 3 ML (DUONEB) VIAL INH PRN (18:00)
[2017-05-28] MEDS: cefTRIAXone 1 GM/NS 100 ML IVPB IV SCH ×2 (20:36)
[2017-05-29] VITALS: BP 137/76
[2017-05-29 04:15] VITALS: BP 138/71
[2017-05-29] MEDS: CATHETER FLUSH 10 ML SYR IV SCH ×2 (06:24→14:45)
[2017-05-29 08:00] VITALS: BP 153/72
[2017-05-29 08:01] LABS: BASOPHILS % (AUTO) 0 % (0-10); EOSINOPHILS # (AUTO) 0.1 10^3/uL (0.0-0.3); EOSINOPHILS % (AUTO) 1 % (0-10); HEMATOCRIT 34 % (40-54); LYMPHOCYTES # (AUTO) 0.6 X 10^3 (1.0-4.0); LYMPHOCYTES % (AUTO) 9 % (12-44); MEAN CORPUSCULAR HEMOGLOBIN 31 PG (25-34); MEAN CORPUSCULAR HGB CONC 35 G/DL (32-36); MEAN CORPUSCULAR VOLUME 86 FL (80-99); MEAN PLATELET VOLUME 9.1 FL (7.4-10.4); MONOCYTES # (AUTO) 0.9 X 10^3 (0.0-1.0); MONOCYTES % (AUTO) 13 % (0-12); NEUTROPHILS # (AUTO) 5.6 X 10^3 (1.8-7.8); NEUTROPHILS % (AUTO) 78 % (42-75); PLATELET COUNT 203 10^3/uL (130-400); RED BLOOD COUNT 3.93 10^6/uL (4.35-5.85); RED CELL DISTRIBUTION WIDTH 12.8 % (10.0-14.5); WHITE BLOOD COUNT 7.3 10^3/uL (4.3-11.0)
[2017-05-29 08:21] LABS: BUN/CREATININE RATIO 10; CALCIUM 8.3 MG/DL (8.5-10.1); CARBON DIOXIDE 22 MMOL/L (21-32); CHLORIDE 104 MMOL/L (98-107); GFR ESTIMATED > 60; GLUCOSE 99 MG/DL (70-105); POTASSIUM 3.8 MMOL/L (3.6-5.0); SODIUM 134 MMOL/L (135-145)
[2017-05-29] MEDS: DILTIAZEM 240 MG (CARDIZEM CD) CAP PO SCH (09:31)
[2017-05-29] MEDS: APIXABAN 5 MG (ELIQUIS) TABLET PO SCH (09:31)
[2017-05-29] MEDS ORDERED: CEFD300C3 PO (10:57)
[2017-05-29] MEDS ORDERED: APIX5TAB PO (10:57)
[2017-05-29] MEDS ORDERED: DILT240C63 PO (10:57)
--- NOTE | 2017-05-29 10:59 | Discharge Summary-Hospitalist ---
Diagnosis/Chief Complaint Date of Admission May 26, 2017 at 10:10 pm Date of Discharge Discharge Date: May 29, 2017 Admission Diagnosis Sepsis Discharge Diagnosis a-fib with RVR and gram negative alice bacteremia (1) Bacteremia Status: Acute Assessment & Plan: per notes - GNR growing from outside hospital Will request records- never sent Will switch Rocephin to Omnicef for coverage with oral antibiotics to complete course Cultures negative here- after he had received Levaquin as an outpatient Met sepsis criteria on arrival but since resolved no severe sepsis criteria met (2) Atrial fibrillation Status: Acute Assessment & Plan: A-fib with RVR on presentation Cardiology consulted, appreciate recs Continue diltiazem Apixaban for anticoagulation TSH normal Echo preserved EF, no valvular abnormalities (3) UTI (urinary tract infection) Status: Acute Assessment & Plan: UA consistent with UTI Likely source of infection from indwelling catheter (4) Urinary retention due to benign prostatic hyperplasia Status: Acute Assessment & Plan: Urology consulted, started on flomax Has appointment with Dr Mcmahon tomorrow (5) GERD (gastroesophageal reflux disease) Status: Chronic Assessment & Plan: Tums (6) Prophylactic measure Assessment & Plan: Apixaban for anticoagulation Reg diet Saline lock Discharge Summary Procedures/Consulations Dr Cabrera- Cardiology Dr Lim- Pulmonology Dr Mcmahon- Urology Discharge Physical Exam Allergies: Coded Allergies: No Known Drug Allergies (Unverified , 02/06/13) Vitals & I&Os Vital Signs Date Time Temp Pulse Resp B/P (MAP) Pulse Ox O2 Delivery O2 Flow Rate FiO2 05/29/17 08:00 99.3 76 18 153/72 (99) 95 Room Air General Appearance: Alert, Oriented X3 Respiratory: Clear to Auscultation Cardiovascular: Regular Rate Abdominal: Normal Bowel Sounds Psych/Mental Status: Mental Status NL Hospital Course Pt is a 67yoCM with a PMH of BPH and urinary retention who had an indwelling weber catheter place 3 weeks ago. He was seen in [place], [place] by a Urology [employer]ER and labs where drawn. He was called by the facility to go to the ER for positive blood cultures. He presented here and was found to be in A-fib with RVR. He was admitted to the ICU for management of sepsis and atrial fibrillation. He was started on Rocephin here and cultures were redrawn and negative (had been taking Levaquin). His rate was controlled with Diltiazem and he was started on Eliquis for anticoagulation. He was doing well and was transitioned to oral antibiotics at discharge to complete 2 week course. He as comfortable with plan to discharge home. Follow up appointments were arranged for him. He was provided with a coupon for Eliquis should his prescription cost be unaffordable for him. Labs (last 24 hrs) Laboratory Tests 05/28/17 15:58: Glucometer 144H 05/29/17 07:45: White Blood Count 7.3, Red Blood Count 3.93L, Hemoglobin 12.0L, Hematocrit 34L, Mean Corpuscular Volume 86, Mean Corpuscular Hemoglobin 31, Mean Corpuscular Hemoglobin Concent 35, Red Cell Distribution Width 12.8, Platelet Count 203, Mean Platelet Volume 9.1, Neutrophils (%) (Auto) 78H, Lymphocytes (%) (Auto) 9L , Monocytes (%) (Auto) 13H, Eosinophils (%) (Auto) 1, Basophils (%) (Auto) 0, Neutrophils # (Auto) 5.6, Lymphocytes # (Auto) 0.6L, Monocytes # (Auto) 0.9, Eosinophils # (Auto) 0.1, Basophils # (Auto) 0.0, Sodium Level 134L, Potassium Level 3.8, Chloride Level 104, Carbon Dioxide Level 22, Anion Gap 8, Blood Urea Nitrogen 7, Creatinine 0.70, Estimat Glomerular Filtration Rate > 60, BUN/ Creatinine Ratio 10, Glucose Level 99, Calcium Level 8.3L Microbiology 05/26/17 Blood Culture - Preliminary, Resulted No growth 05/26/17 Urine Culture - Final, Complete NO GROWTH Patient resulted labs reviewed. Pending Labs Laboratory Tests 05/29/17 07:45: White Blood Count 7.3, Red Blood Count 3.93, Hemoglobin 12.0, Hematocrit 34, Mean Corpuscular Volume 86, Mean Corpuscular Hemoglobin 31, Mean Corpuscular Hemoglobin Concent 35, Red Cell Distribution Width 12.8, Platelet Count 203, Mean Platelet Volume 9.1, Neutrophils (%) (Auto) 78, Lymphocytes (%) (Auto) 9, Monocytes (%) (Auto) 13, Eosinophils (%) (Auto) 1, Basophils (%) (Auto) 0, Neutrophils # (Auto) 5.6, Lymphocytes # (Auto) 0.6, Monocytes # (Auto) 0.9, Eosinophils # (Auto) 0.1, Basophils # (Auto) 0.0, Sodium Level 134, Potassium Level 3.8, Chloride Level 104, Carbon Dioxide Level 22, Anion Gap 8, Blood Urea Nitrogen 7, Creatinine 0.70, Estimat Glomerular Filtration Rate > 60, BUN/ Creatinine Ratio 10, Glucose Level 99, Calcium Level 8.3 Discussion & Recommendations Discharge Planning: >30 minutes discharge planning Discharge Home Medications: Active Scripts Active Cefdinir 300 Mg Capsule 300 Mg PO BID Diltiazem 24Hr Cd (Diltiazem HCl) 240 Mg Cap.er.24h 240 Mg PO DAILY@0900 Eliquis (Apixaban) 5 Mg Tablet 5 Mg PO BID Reported [primal xl] 2 Tab PO BID [primal factor] 2 Tab PO BID Levofloxacin 500 Mg Tablet 500 Mg PO DAILY FILLED 05/26/17 #7 FOR A 7 DAY THERAPY Tamsulosin HCl 0.4 Mg Cap.er.24h 0.4 Mg PO DAILY Instructions to patient/family Please see electronic discharge instructions given to patient. Clinical Quality Measures DVT/VTE Risk/Contraindication: Risk Factor Score Per Nursin RFS Level Per Nursing on Admit: 2=Moderate Contraindications-Pharm: Other *list below* Other: on [employer] Copy Copies To 1: DOTTIE GUZMAN MD Problem Qualifiers (1) Atrial fibrillation: Atrial fibrillation type: paroxysmal Qualified Codes: I48.0 - Paroxysmal atrial fibrillation (2) UTI (urinary tract infection): Urinary tract infection type: catheter-associated UTI Indwelling urinary catheter type: unspecified Encounter type: initial encounter Qualified Codes : T83.511A - Infection and inflammatory reaction due to indwelling urethral catheter, initial encounter; N39.0 - Urinary tract infection, site not specified (3) GERD (gastroesophageal reflux disease): Esophagitis presence: esophagitis presence not specified Qualified Codes: K21.9 - Gastro-esophageal reflux disease without esophagitis HERNAN GATES MD May 29, 2017 10:59 am
--- NOTE | 2017-05-29 11:41 | Progress Note-Urology ---
Progress Note-Urology Progress Notes/Assess & Plan Progress/Assessment & Plan GOING HOME. TOMORROW AT OFFICE, WE WILL DO CYSTO AND TRUSP Final Diagnosis BPH, NEUROGENIC BLADDER AND RETENTION WITH SEPSIS ESTEFANIA HOUGH MD May 29, 2017 11:41
--- NOTE | 2017-05-29 11:45 | Progress Note-Cardiology ---
Cardiology SOAP Progress Note Subjective: Was somewhat short of breath yesterday (w/o any hypoxia) that improved with breathing treatments No shortness of breath today Denies cp or palp or syncope Wishes to go home Objective: I&O/Vital Signs Vital Sign - Last 12Hours 05/29/17 05/29/17 05/29/17 05/29/17 00:00 01:00 04:15 07:00 Temp 100.3 99.5 Pulse 77 82 82 80 Resp 18 20 B/P (MAP) 137/76 (96) 138/71 (93) Pulse Ox 94 96 O2 Delivery Room Air Room Air 05/29/17 08:00 Temp 99.3 Pulse 76 Resp 18 B/P (MAP) 153/72 (99) Pulse Ox 95 O2 Delivery Room Air Intake and Output 05/29/17 00:00 Intake Total 2860 ml Output Total 2450 ml Balance 410 ml Weight (Pounds): 151 Weight (Ounces): 0.0 Weight (Calculated Kilograms): 68.134040 Constitutional: AAO x 3, well-developed, well-nourished Respiratory: No accessory muscle use, lungs clear to auscultation Cardiovascular: irregularly irregular, S1 and S2, systolic murmur (faint ST[place]ISLAW at card base) Gastrointestional: No tender, soft, No guarding, No rebound, audible bowel sounds Extremities: No clubbing, No cyanosis, No significant edema Neurologic/Psychiatric: oriented x 3, grossly intact, power is 5/5 both on sides Skin: normal color, warm/dry, No rash on exposed areas, No ulcerations on exposed areas, other (good capillary refill) Results/Procedures: Labs Laboratory Tests 05/28/17 15:58: Glucometer 144H 05/29/17 07:45: White Blood Count 7.3, Red Blood Count 3.93L, Hemoglobin 12.0L, Hematocrit 34L, Mean Corpuscular Volume 86, Mean Corpuscular Hemoglobin 31, Mean Corpuscular Hemoglobin Concent 35, Red Cell Distribution Width 12.8, Platelet Count 203, Mean Platelet Volume 9.1, Neutrophils (%) (Auto) 78H, Lymphocytes (%) (Auto) 9L , Monocytes (%) (Auto) 13H, Eosinophils (%) (Auto) 1, Basophils (%) (Auto) 0, Neutrophils # (Auto) 5.6, Lymphocytes # (Auto) 0.6L, Monocytes # (Auto) 0.9, Eosinophils # (Auto) 0.1, Basophils # (Auto) 0.0, Sodium Level 134L, Potassium Level 3.8, Chloride Level 104, Carbon Dioxide Level 22, Anion Gap 8, Blood Urea Nitrogen 7, Creatinine 0.70, Estimat Glomerular Filtration Rate > 60, BUN/ Creatinine Ratio 10, Glucose Level 99, Calcium Level 8.3L Microbiology 05/26/17 Blood Culture - Preliminary, Resulted No growth 05/26/17 Urine Culture - Final, Complete NO GROWTH Laboratory Tests 05/28/17 03:35 05/29/17 07:45 A/P: Assessment: Gram-negative septicemia due to obstructive uropathy (probably BPH). This is being managed by the Med [facility] and by Urology AStarla cole with RVR, first documented on 05/26/17. Currently NSR Echo on 05/28/17: LVEF 60-65%, mild MR, PASP 35 mmHg TSH normal on 05/28/17 (2.33) Probable sleep apnea (as reported by his at the time of this interview) H/o BPH for which he has previously had surgery (Dr Suresh) Plan: * I discussed his echo results and his CV issues with him * Continue therapy for rate control and stroke prophylaxis * We recommend sleep studies to eval for sleep apnea. He states he will have it as an outpatient * I discussed his case with Dr Jiang and with Dr Mcmahon * Dr Mcmahon is nor planning surgery yet * Ok to hold Eliquis for a total of 4-5 days perioperatively * Outpatient f/u advised MOHINDER CERON MD FACP [facility] May 29, 2017 11:45
[2017-05-29 12:00] VITALS: BP 148/68
[2017-05-29 15:30] VITALS: BP 148/68
== END 2017-05-29 15:25 | disposition home or self-care (01) | DRG 872 ==
LOC: EDUNIT# 20:06 → ER 20:07 → ICU 22:10 → 4TH 05-28 10:04
PROVIDERS: ADMIT Internal Medicine; ATTEND Internal Medicine
DX: A41.50 Gram-negative sepsis, unspecified (principal); T83.511A Infection and inflammatory reaction due to indwelling urethral catheter, initial encounter; N39.0 Urinary tract infection, site not specified; N40.0 Benign prostatic hyperplasia without lower urinary tract symptoms; R33.9 Retention of urine, unspecified; I48.0 Paroxysmal atrial fibrillation; I95.89 Other hypotension; N13.9 Obstructive and reflux uropathy, unspecified; G47.30 Sleep apnea, unspecified; K21.9 Gastro-esophageal reflux disease without esophagitis; Z80.42 Family history of malignant neoplasm of prostate; Z87.891 Personal history of nicotine dependence
CPT/HCPCS: 36415; 71045; 80048; 80053; 81000; 82962; 83605; 83735; 84100; 84443; 85007; 85025; 85027; 85610; 85730; 87040; 87088; 93005; 93306; 94640; 96361; 96365; 96375

== ENCOUNTER 2017-07-09 12:55 | Outpatient (CLI) | payer OTHER, MEDICARE ==
[~2017-07-09 12:55] MED LIST: APIX5TAB PO; CEFD300C3 PO; CLIN150C17; CLIN300C11 PO; DILT240C63 PO; LEVO500T80; LEVO500T80 PO; MUPI22OI2; TAMS0.4C2; TAMS0.4C2 PO; [UNRECOGNIZED DRUG - OTHER] PO; [UNRECOGNIZED DRUG - OTHER] PO
== END 2017-07-09 14:30 | disposition home or self-care (01) ==
LOC: SLEEP 12:55
PROVIDERS: ATTEND Nurse Practitioner Family
DX: G47.33 Obstructive sleep apnea (adult) (pediatric) (principal)

== ENCOUNTER 2018-05-14 05:40 | Outpatient (CLI) | payer OTHER, MEDICARE ==
[~2018-05-14] VITALS: Ht 175.3 cm; Wt 65.8 kg
[~2018-05-14 05:40] MED LIST changes: -DILT240C63 PO; +DILT240C97 PO
[2018-05-14] MEDS ORDERED: TAMS0.4C98 PO (13:15)
[2018-05-14] MEDS ORDERED: FINA5TAB6 PO (13:15)
== END 2018-05-14 13:30 | disposition home or self-care (01) ==
LOC: PREOP 05:40
PROVIDERS: ATTEND Surgery
DX: Z01.818 Encounter for other preprocedural examination (principal)

== ENCOUNTER 2018-05-21 06:56 | Day surgery (SDC) | payer OTHER, MEDICARE ==
[~2018-05-21] VITALS: Ht 175.3 cm; Wt 65.8 kg
[~2018-05-21 06:56] MED LIST changes: +FINA5TAB6 PO; +TAMS0.4C98 PO
[2018-05-21] MEDS ORDERED: LACTATED RINGERS 1,000 ML IV STA (07:04)
[2018-05-21] MEDS ORDERED: LACTATED RINGERS 1,000 ML IV ONE (07:05)
[2018-05-21] MEDS ORDERED: PROPOFOL INJECTION 50 ML IV ONE (07:11)
[2018-05-21] MEDS ORDERED: MIDAZOLAM 2 MG/2 ML (VERSED) VIAL ONE (07:11)
[2018-05-21] MEDS ORDERED: HURRICAINE EXT TUBE (BENZOCAINE) XX PRN (07:15)
[2018-05-21 07:21] VITALS: BP 147/79
[2018-05-21] MEDS ORDERED: HURRICAINE EXT TUBE (BENZOCAINE) ONE (07:30)
[2018-05-21] MEDS ORDERED: PANT40TA2 PO (08:22)
--- NOTE | 2018-05-21 08:23 | Discharge Inst-Simple/Standard ---
Discharge Inst-Standard Discharge Medications New, Converted or Re-Newed RX: Transmitted to Pharmacy Patient Instructions/Follow Up Plan of Care/Instructions/FU: 2-3 weeks Liam Activity as Tolerated: Yes Discharge Diet: Regular Diet CRISTINA BARBA DO May 21, 2018 08:23
--- NOTE | 2018-05-21 08:24 | Progress Note-Post Operative ---
Post-Operative Progess Note Surgeon (s)/Fire Investigation Manager (s) Surgeon CRISTINA BARBA DO Fire Investigation Manager: na Pre-Operative Diagnosis gerd, hx polyps Post-Operative Diagnosis hiatal hernia possible ryan's, normal colon, gastric polyp Procedure & Operative Findings Date of Procedure 05/21/18 Procedure Performed/Findings egd c biopsies, colonoscopy Anesthesia Type per websphere developer Estimated Blood Loss Estimated blood loss (mL): none Specimens/Packing Specimens Removed antrum, ge CRISTINA BARBA DO May 21, 2018 08:24
[2018-05-21 08:30] VITALS: BP 109/68
--- OUTSIDE RECORDS SUMMARY | 2018-05-21 08:35 | XMS REPORT | Continuity of Care Document ---
Author Author [facility] Organization [facility] Address Unknown Phone Unavailable Allergies Active Description Code Type Severity Reaction Onset Reported/Identified Relationship to Patient Clinical Status Yes No Known Drug Allergies [id number] Drug Allergy Unknown N/A 05/14/2018 Medications There is no data. Problems Date Dx Coded Attending Type Code Diagnosis Diagnosed By 02/06/2013 CRISTINA BARBA DO Ot 562.10 DIVERTICULOSIS COLON (W/O MENT OF HEMORR 02/06/2013 CRISTINA BARBA DO Ot V12.72 PERSONAL HISTORY OF COLONIC POLYPS 02/06/2013 CRISTINA BARBA DO Ot V76.51 SCREEN MAL NEOP-COLON 05/27/2017 Ot 733.90 BONE CARTILAGE DIS NOS 05/27/2017 CRISTINA BARBA DO Ot V72.84 EXAM PRE-OPERATIVE NOS 05/29/2017 KAIDEN MARTINEZ MD Ot A41.50 GRAM-NEGATIVE SEPSIS, UNSPECIFIED 05/29/2017 KAIDEN MARTINEZ MD Ot G47.30 SLEEP APNEA, UNSPECIFIED 05/29/2017 KAIDEN MARTINEZ MD Ot I48.0 PAROXYSMAL ATRIAL FIBRILLATION 05/29/2017 KAIDEN MARTINEZ MD Ot I95.89 OTHER HYPOTENSION 05/29/2017 KAIDEN MARTINEZ MD Ot K21.9 GASTRO-ESOPHAGEAL REFLUX DISEASE WITHOUT 05/29/2017 KAIDEN MARTINEZ MD Ot N13.9 OBSTRUCTIVE AND REFLUX UROPATHY, UNSPECI 05/29/2017 KAIDEN MARTINEZ MD Ot N39.0 URINARY TRACT INFECTION, SITE NOT SPECIF 05/29/2017 KAIDEN MARTINEZ MD Ot N40.0 BENIGN PROSTATIC HYPERPLASIA WITHOUT LOW 05/29/2017 KAIDEN MARTINEZ MD Ot R33.9 RETENTION OF URINE, UNSPECIFIED 05/29/2017 KAIDEN MARTINEZ MD Ot T83.511A I/I REACT D/T INDWELLING URETHRAL CATHET 05/29/2017 KAIDEN MARTINEZ MD Ot Z80.42 FAMILY HISTORY OF MALIGNANT NEOPLASM OF 05/29/2017 KAIDEN MARTINEZ MD Ot Z87.891 PERSONAL HISTORY OF NICOTINE DEPENDENCE 06/27/2017 JIE ARCE FACC, ALI FACP CCDS Ot G47.33 OBSTRUCTIVE SLEEP APNEA (ADULT) (PEDIATR 06/27/2017 JIE ARCE FACC, ALI FACP CCDS Ot I48.0 PAROXYSMAL ATRIAL FIBRILLATION 06/27/2017 JIE ARCE FACC, ALI FACP CCDS Ot R53.1 WEAKNESS 06/27/2017 JIE ARCE FACC, ALI FACP CCDS Ot Z87.438 PERSONAL HISTORY OF OTHER DISEASES OF [place] 07/09/2017 VIRAJ, KAYLENE J NETWORK ASSOCIATE Ot G47.33 OBSTRUCTIVE SLEEP APNEA (ADULT) (PEDIATR 07/10/2017 VIRAJ, KAYLENE J NETWORK ASSOCIATE Ot G47.33 OBSTRUCTIVE SLEEP APNEA (ADULT) (PEDIATR 07/12/2017 JIE ARCE FACC, ALI FACP CCDS Ot G47.33 OBSTRUCTIVE SLEEP APNEA (ADULT) (PEDIATR 07/12/2017 JIE ARCE FACC, ALI FACP CCDS Ot I48.0 PAROXYSMAL ATRIAL FIBRILLATION 07/12/2017 JIE ARCE FACC, ALI FACP CCDS Ot R53.1 WEAKNESS 07/12/2017 JIE ARCE FACC, ALI FACP CCDS Ot Z87.438 PERSONAL HISTORY OF OTHER DISEASES OF [place] 07/15/2017 VIRAJ, KAYLENE J NETWORK ASSOCIATE Ot G47.33 OBSTRUCTIVE SLEEP APNEA (ADULT) (PEDIATR 05/14/2018 CRISTINA BARBA DO Ot Z01.818 ENCOUNTER FOR OTHER PREPROCEDURAL EXAMIN Procedures There is no data. Results Test Result Range Complete blood count (CBC) with automated white blood cell (WBC) differential - 05/26/17 20:30 Blood leukocytes automated count (number/volume) 11.5 10*3/uL 4.3-11.0 Blood erythrocytes automated count (number/volume) 4.26 10*6/uL 4.35-5.85 Venous blood hemoglobin measurement (mass/volume) 13.1 g/dL 13.3-17.7 Blood hematocrit (volume fraction) 37 % 40-54 Automated erythrocyte mean corpuscular volume 87 [foz_us] 80-99 Automated erythrocyte mean corpuscular hemoglobin (mass per erythrocyte) 31 pg 25-34 Automated erythrocyte mean corpuscular hemoglobin concentration measurement ( mass/volume) 35 g/dL 32-36 Automated erythrocyte distribution width ratio 12.8 % 10.0-14.5 Automated blood platelet count (count/volume) 221 10*3/uL 130-400 Automated blood platelet mean volume measurement 8.7 [foz_us] 7.4-10.4 Automated blood neutrophils/100 leukocytes 96 % 42-75 Automated blood lymphocytes/100 leukocytes 2 % 12-44 Blood monocytes/100 leukocytes 3 % 0-12 Automated blood eosinophils/100 leukocytes 0 % 0-10 Automated blood basophils/100 leukocytes 0 % 0-10 Blood neutrophils automated count (number/volume) 11.0 10*3 1.8-7.8 Blood lymphocytes automated count (number/volume) 0.2 10*3 1.0-4.0 Blood monocytes automated count (number/volume) 0.3 10*3 0.0-1.0 Automated eosinophil count 0.0 10*3/uL 0.0-0.3 Automated blood basophil count (count/volume) 0.0 10*3/uL 0.0-0.1 Complete urinalysis with reflex to culture - 05/26/17 20:30 Urine color determination YELLOW NRG Urine clarity determination CLEAR NRG Urine pH measurement by test strip 6 5-9 Specific gravity of urine by test strip 1.010 1.016- 1.022 Urine protein assay by test strip, semi-quantitative 3+ NEGATIVE Urine glucose detection by automated test strip NEGATIVE NEGATIVE Erythrocytes detection in urine sediment by light microscopy 5+ NEGATIVE Urine ketones detection by automated test strip 1+ NEGATIVE Urine nitrite detection by test strip NEGATIVE NEGATIVE Urine total bilirubin detection by test strip NEGATIVE NEGATIVE Urine urobilinogen measurement by automated test strip (mass/volume) 4 mg/dL NORMAL Urine leukocyte esterase detection by dipstick 3+ NEGATIVE Automated urine sediment erythrocyte count by microscopy (number/high power field) [HPF] NRG Automated urine sediment leukocyte count by microscopy (number/high power field ) [HPF] NRG Bacteria detection in urine sediment by light microscopy FEW NRG Crystals detection in urine sediment by light microscopy NONE NRG Casts detection in urine sediment by light microscopy NONE NRG Mucus detection in urine sediment by light microscopy NEGATIVE NRG Complete urinalysis with reflex to culture YES NRG PT panel in platelet poor plasma by coagulation assay - 05/26/17 20:30 Prothrombin time (PT) in platelet poor plasma by coagulation assay 17.3 s 12.2-14.7 INR in platelet poor plasma or blood by coagulation assay 1.4 0.8-1.4 Activated partial thromboplastin time (aPTT) in platelet poor plasma bycoagulation assay - 05/26/17 20:30 Activated partial thromboplastin time (aPTT) in platelet poor plasma bycoagulation assay 29 s 24-35 Blood lactic acid measurement (moles/volume) - 05/26/17 20:30 Blood lactic acid measurement (moles/volume) 1.23 mmol/L 0.50-2.00 Comprehensive metabolic panel - 05/26/17 20:30 Serum or plasma sodium measurement (moles/volume) 131 mmol/L 135-145 Serum or plasma potassium measurement (moles/volume) 3.9 mmol/L 3.6-5.0 Serum or plasma chloride measurement (moles/volume) 100 mmol/L 98-107 Carbon dioxide 23 mmol/L 21-32 Serum or plasma anion gap determination (moles/volume) 8 mmol/L 5-14 Serum or plasma urea nitrogen measurement (mass/volume) 22 mg/dL 7-18 Serum or plasma creatinine measurement (mass/volume) 0.93 mg/dL 0.60-1.30 Serum or plasma urea nitrogen/creatinine mass ratio 24 NRG Serum or plasma creatinine measurement with calculation of estimated glomerular filtration rate > NRG Serum or plasma glucose measurement (mass/volume) 110 mg/dL 70-105 Serum or plasma calcium measurement (mass/volume) 8.9 mg/dL 8.5-10.1 Serum or plasma total bilirubin measurement (mass/volume) 1.3 mg/dL 0.1-1.0 Serum or plasma alkaline phosphatase measurement (enzymatic activity/volume) 68 U/L 40-136 Serum or plasma aspartate aminotransferase measurement (enzymatic activity/ volume) 23 U/L 5-34 Serum or plasma alanine aminotransferase measurement (enzymatic activity/volume ) 23 U/L 0-55 Serum or plasma protein measurement (mass/volume) 6.0 g/dL 6.4-8.2 Serum or plasma albumin measurement (mass/volume) 3.9 g/dL 3.2-4.5 Blood manual differential performed detection - 05/26/17 20:30 Blood monocytes/100 leukocytes 1 % NRG Manual blood segmented neutrophils/100 leukocytes 83 % NRG Blood band neutrophils/100 leukocytes 12 % NRG Manual blood lymphocytes/100 leukocytes 4 % NRG Manual eosinophils/100 leukocytes in nose 0 % NRG Manual blood basophils/100 leukocytes 0 % NRG Blood erythrocyte morphology finding identification NORMAL NRG Bacterial blood culture - 05/26/17 20:30 QUANTITY OF GROWTH . NRG Bacterial blood culture SEE COMMEN NRG Bacterial blood culture - 05/26/17 20:30 Bacterial blood culture NG NRG Bacterial urine culture - 05/26/17 20:30 Bacterial urine culture NG NRG Complete blood count (CBC) with automated white blood cell (WBC) differential - 05/27/17 03:05 Blood leukocytes automated count (number/volume) 16.2 10*3/uL 4.3-11.0 Blood erythrocytes automated count (number/volume) 3.59 10*6/uL 4.35-5.85 Venous blood hemoglobin measurement (mass/volume) 11.0 g/dL 13.3-17.7 Blood hematocrit (volume fraction) 32 % 40-54 Automated erythrocyte mean corpuscular volume 89 [foz_us] 80-99 Automated erythrocyte mean corpuscular hemoglobin (mass per erythrocyte) 31 pg 25-34 Automated erythrocyte mean corpuscular hemoglobin concentration measurement ( mass/volume) 35 g/dL 32-36 Automated erythrocyte distribution width ratio 12.9 % 10.0-14.5 Automated blood platelet count (count/volume) 173 10*3/uL 130-400 Automated blood platelet mean volume measurement 8.8 [foz_us] 7.4-10.4 Automated blood neutrophils/100 leukocytes 89 % 42-75 Automated blood lymphocytes/100 leukocytes 5 % 12-44 Blood monocytes/100 leukocytes 7 % 0-12 Automated blood eosinophils/100 leukocytes 0 % 0-10 Automated blood basophils/100 leukocytes 0 % 0-10 Blood neutrophils automated count (number/volume) 14.4 10*3 1.8-7.8 Blood lymphocytes automated count (number/volume) 0.8 10*3 1.0-4.0 Blood monocytes automated count (number/volume) 1.1 10*3 0.0-1.0 Automated eosinophil count 0.0 10*3/uL 0.0-0.3 Automated blood basophil count (count/volume) 0.0 10*3/uL 0.0-0.1 Blood manual differential performed detection - 05/27/17 03:05 Blood monocytes/100 leukocytes 5 % NRG Manual blood segmented neutrophils/100 leukocytes 88 % NRG Blood band neutrophils/100 leukocytes 2 % NRG Manual blood lymphocytes/100 leukocytes 5 % NRG Manual eosinophils/100 leukocytes in nose 0 % NRG Manual blood basophils/100 leukocytes 0 % NRG Blood erythrocyte morphology finding identification NORMAL NRG Whole blood basic metabolic panel - 05/27/17 03:05 Serum or plasma sodium measurement (moles/volume) 136 mmol/L 135-145 Serum or plasma potassium measurement (moles/volume) 3.7 mmol/L 3.6-5.0 Serum or plasma chloride measurement (moles/volume) 110 mmol/L 98-107 Carbon dioxide 18 mmol/L 21-32 Serum or plasma anion gap determination (moles/volume) 8 mmol/L 5-14 Serum or plasma urea nitrogen measurement (mass/volume) 15 mg/dL 7-18 Serum or plasma creatinine measurement (mass/volume) 0.81 mg/dL 0.60-1.30 Serum or plasma urea nitrogen/creatinine mass ratio 19 NRG Serum or plasma creatinine measurement with calculation of estimated glomerular filtration rate > NRG Serum or plasma glucose measurement (mass/volume) 178 mg/dL 70-105 Serum or plasma calcium measurement (mass/volume) 7.9 mg/dL 8.5-10.1 Serum or plasma phosphate measurement (mass/volume) - 05/27/17 03:05 Serum or plasma phosphate measurement (mass/volume) 1.6 mg/dL 2.3-4.7 Magnesium - 05/27/17 03:05 Magnesium 1.8 mg/dL 1.8-2.4 Complete blood count (CBC) with automated white blood cell (WBC) differential - 05/28/17 03:35 Blood leukocytes automated count (number/volume) 9.7 10*3/uL 4.3-11.0 Blood erythrocytes automated count (number/volume) 4.02 10*6/uL 4.35-5.85 Venous blood hemoglobin measurement (mass/volume) 12.1 g/dL 13.3-17.7 Blood hematocrit (volume fraction) 35 % 40-54 Automated erythrocyte mean corpuscular volume 87 [foz_us] 80-99 Automated erythrocyte mean corpuscular hemoglobin (mass per erythrocyte) 30 pg 25-34 Automated erythrocyte mean corpuscular hemoglobin concentration measurement ( mass/volume) 35 g/dL 32-36 Automated erythrocyte distribution width ratio 13.1 % 10.0-14.5 Automated blood platelet count (count/volume) 194 10*3/uL 130-400 Automated blood platelet mean volume measurement 9.0 [foz_us] 7.4-10.4 Automated blood neutrophils/100 leukocytes 86 % 42-75 Automated blood lymphocytes/100 leukocytes 6 % 12-44 Blood monocytes/100 leukocytes 8 % 0-12 Automated blood eosinophils/100 leukocytes 0 % 0-10 Automated blood basophils/100 leukocytes 0 % 0-10 Blood neutrophils automated count (number/volume) 8.4 10*3 1.8-7.8 Blood lymphocytes automated count (number/volume) 0.5 10*3 1.0-4.0 Blood monocytes automated count (number/volume) 0.7 10*3 0.0-1.0 Automated eosinophil count 0.0 10*3/uL 0.0-0.3 Automated blood basophil count (count/volume) 0.0 10*3/uL 0.0-0.1 Whole blood basic metabolic panel - 05/28/17 03:35 Serum or plasma sodium measurement (moles/volume) 135 mmol/L 135-145 Serum or plasma potassium measurement (moles/volume) 3.6 mmol/L 3.6-5.0 Serum or plasma chloride measurement (moles/volume) 109 mmol/L 98-107 Carbon dioxide 20 mmol/L 21-32 Serum or plasma anion gap determination (moles/volume) 6 mmol/L 5-14 Serum or plasma urea nitrogen measurement (mass/volume) 15 mg/dL 7-18 Serum or plasma creatinine measurement (mass/volume) 0.71 mg/dL 0.60-1.30 Serum or plasma urea nitrogen/creatinine mass ratio 21 NRG Serum or plasma creatinine measurement with calculation of estimated glomerular filtration rate > NRG Serum or plasma glucose measurement (mass/volume) 107 mg/dL 70-105 Serum or plasma calcium measurement (mass/volume) 7.8 mg/dL 8.5-10.1 Serum or plasma phosphate measurement (mass/volume) - 05/28/17 03:35 Serum or plasma phosphate measurement (mass/volume) 1.6 mg/dL 2.3-4.7 Magnesium - 05/28/17 03:35 Magnesium 1.8 mg/dL 1.8-2.4 THYROID STIMULATING HORMONE - 05/28/17 03:35 THYROID STIMULATING HORMONE 2.33 u[iU]/mL 0.35-4.94 Capillary blood glucose measurement by glucometer (mass/volume) - 05/28/17 15: 58 Capillary blood glucose measurement by glucometer (mass/volume) 144 mg/dL 70-110 Complete blood count (CBC) with automated white blood cell (WBC) differential - 05/29/17 07:45 Blood leukocytes automated count (number/volume) 7.3 10*3/uL 4.3-11.0 Blood erythrocytes automated count (number/volume) 3.93 10*6/uL 4.35-5.85 Venous blood hemoglobin measurement (mass/volume) 12.0 g/dL 13.3-17.7 Blood hematocrit (volume fraction) 34 % 40-54 Automated erythrocyte mean corpuscular volume 86 [foz_us] 80-99 Automated erythrocyte mean corpuscular hemoglobin (mass per erythrocyte) 31 pg 25-34 Automated erythrocyte mean corpuscular hemoglobin concentration measurement ( mass/volume) 35 g/dL 32-36 Automated erythrocyte distribution width ratio 12.8 % 10.0-14.5 Automated blood platelet count (count/volume) 203 10*3/uL 130-400 Automated blood platelet mean volume measurement 9.1 [foz_us] 7.4-10.4 Automated blood neutrophils/100 leukocytes 78 % 42-75 Automated blood lymphocytes/100 leukocytes 9 % 12-44 Blood monocytes/100 leukocytes 13 % 0-12 Automated blood eosinophils/100 leukocytes 1 % 0-10 Automated blood basophils/100 leukocytes 0 % 0-10 Blood neutrophils automated count (number/volume) 5.6 10*3 1.8-7.8 Blood lymphocytes automated count (number/volume) 0.6 10*3 1.0-4.0 Blood monocytes automated count (number/volume) 0.9 10*3 0.0-1.0 Automated eosinophil count 0.1 10*3/uL 0.0-0.3 Automated blood basophil count (count/volume) 0.0 10*3/uL 0.0-0.1 Whole blood basic metabolic panel - 05/29/17 07:45 Serum or plasma sodium measurement (moles/volume) 134 mmol/L 135-145 Serum or plasma potassium measurement (moles/volume) 3.8 mmol/L 3.6-5.0 Serum or plasma chloride measurement (moles/volume) 104 mmol/L 98-107 Carbon dioxide 22 mmol/L 21-32 Serum or plasma anion gap determination (moles/volume) 8 mmol/L 5-14 Serum or plasma urea nitrogen measurement (mass/volume) 7 mg/dL 7-18 Serum or plasma creatinine measurement (mass/volume) 0.70 mg/dL 0.60-1.30 Serum or plasma urea nitrogen/creatinine mass ratio 10 NRG Serum or plasma creatinine measurement with calculation of estimated glomerular filtration rate > NRG Serum or plasma glucose measurement (mass/volume) 99 mg/dL 70-105 Serum or plasma calcium measurement (mass/volume) 8.3 mg/dL 8.5-10.1 Encounters ACCT No. Visit Date/Time Discharge Status Pt. Type Provider Facility Loc./Unit Complaint [id number] 05/14/2018 05:40:00 05/14/2018 13:30:00 DIS Outpatient CRISTINA BARBA DO [facility] PREOP COLONOSCOPY/EGD [id number] 07/09/2017 12:55:00 07/09/2017 14:30:00 DIS Outpatient KAYLENE CALI [facility] SLEEP OBSTRUCTIVE SLEEP APNEA [id number] 06/26/2017 11:04:00 06/26/2017 23:59:59 CLS Outpatient JIE ARCE FACCMOHINDER FACP CCDS [facility] CARD I48.0 PAF [id number] 06/18/2017 13:56:00 06/18/2017 23:59:59 CLS Preadmit KAYLENE CALI [facility] SLEEP OBSTRUCTIVE SLEEP APNEA G47.33 [id number] 05/26/2017 22:10:00 05/29/2017 15:25:00 DIS Inpatient KAIDEN MARTINEZ MD [facility] 4TH BLOOD INFECTION [id number] 02/06/2013 11:51:00 02/06/2013 15:30:00 DIS Outpatient CRISTINA BARBA DO [facility] SDC SCREENING; HX POLYPS [id number] 02/05/2013 07:38:00 02/05/2013 23:59:59 CLS Outpatient CRISTINA BARBA DO [facility] PREOP SCREENING; HX POLYPS [id number] 05/21/2018 08:00:00 PEN Preadmit CRISTINA BARBA DO [facility] ENDO GERD/HX POLYPS/SCREENING [id number] 03/01/2012 11:05:00 Document Registration [id number] 05/06/2018 10:20:00 05/06/2018 23:59:59 CLS Outpatient L[facility] LEON [facility]
[2018-05-21 09:00] VITALS: BP 117/76
[2018-05-21 09:10] VITALS: BP 117/76
--- NOTE | 2018-05-21 11:03 | Anesthesia-General Post-Op ---
MAC Patient Condition Mental Status/LOC: Same as Preop Cardiovascular: Satisfactory Nausea/Vomiting: Absent Respiratory: Satisfactory Pain: Controlled Complications: Absent Post Op Complications Complications None Follow Up Care/Instructions Patient Instructions None needed. Anesthesiology Discharge Order Discharge Order Patient is doing well, no complaints, stable vital signs, no apparent adverse anesthesia problems. No complications reported per nursing. ASPEN LIRA CRNA May 21, 2018 11:03
--- NOTE | 2018-05-21 12:58 | OPERATIVE REPORT ---
DATE OF SERVICE: 05/21/2018 PREOPERATIVE DIAGNOSES: Gastroesophageal reflux disease and history of colon polyps. 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 PROCEDURE: EGD with biopsies, colonoscopy. SURGEON: Cristina Wheeler DO ANESTHESIA: Per MANAGER OF QUALITY. ESTIMATED BLOOD LOSS: None. COMPLICATIONS: None. INDICATIONS: The patient is a 68-year-old male due for screening colonoscopy and has reflux symptoms. He understands risks and benefits of procedure, wishes to proceed with procedure. Consent was signed in the chart. DESCRIPTION OF PROCEDURE: The patient was taken to the endoscopy suite, placed in left lateral recumbent position. Timeout was performed. Scope was inserted in mouth, down the esophagus, stomach and into the duodenum without difficulty. There were no polyps, masses or ulcerations within the duodenum. Scope was slowly retracted back into the stomach where it was further insufflated. No polyps, masses or ulcerations within the antrum. Scope was retroflexed noting a small gastric polyp and a small hiatal hernia. No other pathology noted. Scope was returned to its normal position. Biopsy of the antrum was obtained. Scope was then slowly retracted back into the distal esophagus, which had the appearance of some possible slight Werner's. Biopsy was obtained. Scope was then slowly retracted back noting no other pathology. Digital rectal exam was performed. There were no palpable polyps, masses or ulcerations. The scope was then inserted in the rectum, advanced all the way to cecum with minimal difficulty. Prep was adequate with irrigation and suction. There are no polyps, masses or ulcerations in the cecum, ascending, transverse, descending and sigmoid colon. Once in the rectum, scope was retroflexed noting no other pathology. Scope was returned to its normal position, slowly withdrawn until completely removed. The patient tolerated procedure well without any complications, taken to recovery room in stable condition. RECOMMENDATIONS: The patient will be started on Protonix 40 mg daily. He will follow up in office in two to three weeks to discuss pathology results, we will see how he is doing. The patient will need repeat colonoscopy in 5 years. If any issues before, then he will be seen at that time. Job ID: [id number] DocumentID: [id number] Dictated Date: 05/21/2018 08:26:48 [employer] Employee Date: 05/21/2018 12:57:28 Dictated By: CRISTINA WHEELER DO
== END 2018-05-21 09:10 | disposition home or self-care (01) ==
LOC: ENDO 06:56
PROVIDERS: ATTEND Surgery
DX: Z12.11 Encounter for screening for malignant neoplasm of colon (principal); K21.0 Gastro-esophageal reflux disease with esophagitis; K44.9 Diaphragmatic hernia without obstruction or gangrene; K31.7 Polyp of stomach and duodenum; Z86.010 Personal history of colon polyps; I48.91 Unspecified atrial fibrillation; G47.33 Obstructive sleep apnea (adult) (pediatric); Z79.01 Long term (current) use of anticoagulants; Z87.891 Personal history of nicotine dependence

== ENCOUNTER → 2020-01-01 | Outpatient (CLI) | payer MEDICARE, OTHER ==
[~2020-01-01] MED LIST changes: +DILT240C92 PO; -DILT240C97 PO; +PANT40TA2 PO; -TAMS0.4C98 PO; +TMSL.4C PO
== END ==
LOC: CARD 13:00
PROVIDERS: ATTEND Nurse Practitioner Family
DX: I34.0 Nonrheumatic mitral (valve) insufficiency (principal); I48.0 Paroxysmal atrial fibrillation; G47.33 Obstructive sleep apnea (adult) (pediatric); I27.0 Primary pulmonary hypertension
CPT/HCPCS: 93306

== ENCOUNTER → 2022-03-06 | Outpatient (CLI) | payer MEDICARE ==
[~2022-03-06] MED LIST changes: +CLIN-144 PO; -CLIN150C17; +CLIN150C20; -CLIN300C11 PO; +LEVO-55; +LEVO-55 PO; -LEVO500T80; -LEVO500T80 PO
== END ==
LOC: CARD 11:30
PROVIDERS: ATTEND Nurse Practitioner Family
DX: R06.09 Other forms of dyspnea (principal)
CPT/HCPCS: 93306

== ENCOUNTER → 2022-03-07 | Outpatient (CLI) | payer MEDICARE ==
[~2022-03-07] VITALS: Ht 175 cm; Wt 72.0 kg
[~2022-03-07] MED LIST changes: +CATHETER FLUSH 10 ML SYR IVP PRN
[2022-03-07 08:51] VITALS: BP 123/74
--- NOTE | 2022-03-07 19:58 | STRESS TEST ---
DATE OF SERVICE: 03/07/2022 RESTING AND POST REGADENOSON TECHNETIUM-99M TETROFOSMIN SPECT CT IMAGING ORDERING PHYSICIAN: DIANNE Perdue PRIMARY PHYSICIAN: Dr. Ortiz. CLINICAL DIAGNOSIS: Chest discomfort. Baseline images were carried out after injection of 10.9 mCi technetium-99m Tetrofosmin. This was followed by 0.4 Regadenoson and 28.7 mCi of technetium-99m Tetrofosmin for stress imaging. The electrocardiogram showed sinus rhythm at baseline. There was incomplete right bundle branch block. Rare isolated premature ventricular contractions were seen. The patient noted some dizziness and lightheadedness following regadenoson infusion, which resolved in a few minutes. Review of images at rest and following stress does not indicate any distinct perfusion defects consistent with significant myocardial ischemia or infarction. Gated images showed normal global left ventricular systolic function with normal regional wall motion. Left ventricular ejection fraction is calculated to be 74%. CONCLUSIONS: 1. No evidence of any significant myocardial ischemia or infarction of this study. 2. Normal regional wall motion. 3. Normal global left ventricular systolic function with a calculated ejection fraction of 74%. Job ID: [id number] DocumentID: [id number] Dictated Date: 03/07/2022 16:04:43 Sawmill Manager Date: 03/07/2022 19:56:00 Dictated By: MOHINDER CERON MD; BISI; FACP; FACC;
== END ==
LOC: CARD 07:30
PROVIDERS: ATTEND Nurse Practitioner Family
DX: R07.89 Other chest pain (principal)
CPT/HCPCS: 78452; 93017; A9502